=== PATIENT | female | born 1935 | race Caucasian/White ===

== ENCOUNTER 2020-01-03 22:44 | Emergency (ER) | payer MEDICARE, SELFPAY ==
--- NOTE | ~2020-01-03 | XR_ITS ---
EXAMINATION: XR humerus RT EXAM DATE: 01/03/2020 23:13 INDICATION: Initial encounter following injury, with pain of the right upper arm. TECHNIQUE: Orthogonal projections right humerus. Correlation is made to right shoulder x-ray 05/20/20 18. FINDINGS: Previously seen right humeral neck fracture has healed. There are several old right rib fr actures. There are no acute fractures or dislocations identified. There is no subcutaneous gas. The soft tissue is unremarkable. There are no radiopaque foreign bodies. IMPRESSION: 1. XR humerus RT exam without acute osseous findings. 2. Old fractures. Reviewed, dictated and finalized at location A.
--- NOTE | ~2020-01-03 | CT_ITS ---
EXAMINATION: CT brain wo con, CT cervical spine wo con EXAM DATE: 01/03/2020 23:11 INDICATION: Fall, frontal head injury. On blood thinners. TECHNIQUE: Spiral CT of the head was performed without contrast. Axial, and sagittal images were rev iewed. Spiral CT of the cervical spine was performed without contrast. Axial images were reviewed. Coronal and sagittal reformatted images were also reviewed. The dose-length product (DLP) for this e xamination was 605.33 (accession [id number]), 248.40 (accession [id number]) mGy-cm. The expo sure was tailored according to patient size, and iterative reconstruction (ASIR) was used as addition al dose reduction technique. Comparison is made to prior examination from 03/06/2018. FINDINGS: HEAD CT: There is no acute intraparenchymal hemorrhage. No evidence of intraparenchymal brain mass l esion. No evidence of acute infarction. There is mild to moderate periventricular and subcortical hy podensity, nonspecific but probably related to small vessel ischemic disease. There is mild to mode rate prominence of the sulci and ventricles related to cerebral atrophy. There is intracranial lizama tid arteriosclerosis. There is no mass effect or midline shift. There is no obstructive hydrocephal us suspected. There are no extra-axial collections. There are no acute calvarial fractures. The or bits are unremarkable. Small left frontal scalp contusion. The visualized sinuses and mastoid air ce lls are well aerated. CERVICAL CT: Chronic C3 burst fracture with moderate loss of this vertebral body height, and chronic T2 burst fracture with severe loss of this height centrally, both findings are unchanged. Some advanc ed cervical arthropathy. There is no evidence of acute cervical fracture. The odontoid process is in tact. Pre-dens space is normal. Prevertebral soft tissue is normal. There are no soft tissue abnor malities identified. There is no disc space widening or traumatic vertebral body subluxation suspect ed. A detailed level by level evaluation of spondylosis can be added as addendum if requested. IMPRESSION: 1. No acute intracranial or cervical findings. 2. Mild to moderate age-related intracranial findings. 3. Small left frontal scalp contusion. 4. Chronic C3, T2 burst fractures unchanged. Reviewed, dictated and finalized at location A. IMPRESSION: 1. No acute intracranial or cervical findings. 2. Mild to moderate age-related intracranial findings. 3. Small left frontal scalp contusion. 4. Chronic C3, T2 burst fractures unchanged.
--- NOTE | ~2020-01-03 | XR_ITS ---
EXAMINATION: XR wrist RT min 3V EXAM DATE: 01/03/2020 23:14 INDICATION: Initial encounter following injury, with pain of the right wrist TECHNIQUE: Right wrist frontal, frontal with ulnar deviation, oblique and lateral projections obtain ed and reviewed. Comparison is made to prior examination from 05/20/2018. FINDINGS: Previously seen comminuted right distal radial metaphyseal fracture has healed. There is sc apholunate dissociation. There is chronic ulnar styloid avulsion fracture. Polyarticular osteoarthrit is. There are no acute fractures or dislocations identified. There is no subcutaneous gas. The soft tissue is unremarkable. There are no radiopaque foreign bodies. IMPRESSION: 1. Old right distal radial and ulnar styloid fractures. 2. Chronic scapholunate dissociation. 3. No acute fracture line identified. Reviewed, dictated and finalized at location A.
--- NOTE | 2020-01-03 22:43 | ED.FALL ---
HPI - Fall General Chief Complaint: Fall Stated Complaint: FALL Related Data Allergies Allergy/AdvReac Type Severity Reaction Status Date / Time scopolamine Allergy Unknown UNKNOWN Verified 05/26/18 11:07 Tetanus Vaccines and Toxoid Allergy Unknown SWELLING Verified 05/26/18 11:11 [facility] Family History Family History (Updated 08/17/18 @ 11:06 by DOCTOR UNKNOWN) Other Diabetes mellitus Family history of arthritis Family history of cardiovascular disease Family history of malignant neoplasm Hypertension Social History Social History Smoking status: Never smoker Alcohol intake: never
[2020-01-03 22:46] VITALS: BP 134/79; PULSE 89; RESP 17; TEMP 36.7; O2SAT 100
--- NOTE | 2020-01-03 22:46 | ED.FALL ---
HPI - Fall General Chief Complaint: Fall Stated Complaint: FALL Time Seen by Provider: 01/03/20 22:44 Source: patient, EMS and RN notes reviewed Mode of arrival: EMS Limitations: other (dementia) History of Present Illness HPI Narrative: Pt is an 84 y/o female who presents to the ED, via EMS from [place], with c/o a fall that occurred 20 minutes ago. Pt slipped in the shower and fell on her right arm. Pt reports a head injury to her left frontal, but denies syncope. Pt also reports right arm pain and right wrist pain, but denies neck pain. HPI is limited due to pt's dementia. MD complaint: fall Onset (ago): minute(s) (20) Fall from: standing Place fall occurred: retirement/SNF Loss of consciousness: none Prolonged down time: no Symptoms prior to fall: none Context: tripped/slipped Location of injury: head and other (right arm, right wrist) Associated symptoms (after fall): other (right arm pain, right wrist pain) Related Data Allergies Allergy/AdvReac Type Severity Reaction Status Date / Time scopolamine Allergy Unknown UNKNOWN Verified 05/26/18 11:07 Tetanus Vaccines and Toxoid Allergy Unknown SWELLING Verified 05/26/18 11:11 Review of Systems Review of Systems: ROS unobtainable: Yes other (limited due to pt's dementia) Musculoskeletal: Musculoskeletal: Denies neck pain and Reports other (right arm pain, right wrist pain) Neurologic: Denies syncope PMFSH Past Medical History Medical History (Updated 01/04/20 @ 00:00 by Heriberto Petersen) A-fib Anemia CKD (chronic kidney disease) stage 2 Closed right hip fracture Dementia Frequent falls GERD (gastroesophageal reflux disease) HTN (hypertension) Hyperlipidemia Hypothyroid Non-Hodgkin lymphoma dx in 2009, with chemotherapy and radiation Surgical History Surgical History (Updated 01/03/20 @ 23:06 by Connie Hernandez) History of hysterectomy History of knee replacement, total bilateral History of right hip replacement Hx of appendectomy Family History Family History (Updated 01/03/20 @ 23:07 by Connie Hernandez) Mother Hypertension Father Acute myocardial infarction Other Diabetes mellitus Family history of arthritis Family history of cardiovascular disease Family history of malignant neoplasm Social History Social History (Updated 01/03/20 @ 23:07 by Connie Hernandez) Smoking packs per day: 0.5 Smoking cigarettes per day: 10.0 Smoking status: Former smoker Tobacco type: cigarettes Smoking end date: 10/06/1959 Alcohol intake: never Exam Const: General: other (elderly, frail) Course Vital Signs Vital signs: Vital Signs Temperature 36.7 C 01/03/20 22:46 Pulse Rate 89 01/03/20 22:46 Respiratory Rate 17 01/03/20 22:46 Blood Pressure 134/79 01/03/20 22:46 Pulse Oximetry 100 01/03/20 22:46 Temperature 36.7 C 01/03/20 22:46 Pulse Rate 77 01/03/20 23:54 Respiratory Rate 16 01/03/20 23:54 Blood Pressure 112/82 01/03/20 23:54 Pulse Oximetry 99 01/03/20 23:54 MDM - Fall Imaging Data Attestation: I personally reviewed and interpreted this imaging study as follows: Radiologist's impression: ITS Impressions Cervical Spine CT 01/03/20 23:13 IMPRESSION: 1. No acute intracranial or cervical findings. 2. Mild to moderate age-related intracranial findings. 3. Small left frontal scalp contusion. 4. Chronic C3, T2 burst fractures unchanged. Head CT 01/03/20 23:13 IMPRESSION: 1. No acute intracranial or cervical findings. 2. Mild to moderate age-related intracranial findings. 3. Small left frontal scalp contusion. 4. Chronic C3, T2 burst fractures unchanged. Humerus X-Ray 01/03/20 23:20 IMPRESSION: 1. XR humerus RT exam without acute osseous findings. 2. Old fractures. Wrist X-Ray 01/03/20 23:22 IMPRESSION: 1. Old right distal radial and ulnar styloid fractures. 2. Chronic scapholunate dissociation. 3. No acu
--- NOTE | 2020-01-03 23:06 | PC.NURSE ---
pt down to xray and ct
[2020-01-03] MEDS: MORPHINE SULFATE 4 MG/ML INJ IV PUSH (23:26)
[2020-01-03 23:54] VITALS: BP 112/82; PULSE 77; RESP 16; O2SAT 99
--- NOTE | 2020-01-04 00:05 | PC.NURSE ---
Spoke w/ pat at [facility] pt is in independent living and report is not needed.
== END 2020-01-03 23:54 ==
PROVIDERS: Emergency Provider Emergency Medicine; PCP Family Medicine
DX: S09.90XA Unspecified injury of head, initial encounter (principal); M25.511 Pain in right shoulder; F03.90 Unspecified dementia, unspecified severity, without behavioral disturbance, psychotic disturbance, mood disturbance, and anxiety; I48.91 Unspecified atrial fibrillation; I12.9 Hypertensive chronic kidney disease with stage 1 through stage 4 chronic kidney disease, or unspecified chronic kidney disease; N18.2 Chronic kidney disease, stage 2 (mild); K21.9 Gastro-esophageal reflux disease without esophagitis; E78.5 Hyperlipidemia, unspecified; E03.9 Hypothyroidism, unspecified; Z85.72 Personal history of non-Hodgkin lymphomas; Z96.653 Presence of artificial knee joint, bilateral; Z96.641 Presence of right artificial hip joint; Z87.891 Personal history of nicotine dependence; R29.6 Repeated falls; W18.2XXA Fall in (into) shower or empty bathtub, initial encounter
CPT/HCPCS: 70450; 72125; 73060; 73110; 96374; 99284; J2270

== ENCOUNTER 2021-05-25 15:10 | Inpatient (IN) | payer MEDICARE, SELFPAY ==
[2021-05-25] VITALS (32 sets, daily range): BP systolic 97–161; BP diastolic 65–99; PULSE 80–115; RESP 12–29; TEMP 36.5; O2SAT 96–100
--- NOTE | ~2021-05-25 | CT_ITS ---
EXAMINATION: CT brain wo con DATE: 05/27/2021 09:55 INDICATION: Confusion TECHNIQUE: Computed tomography (CT) of the head was performed without intravenous contrast. The mA wa s adjusted according to patient size. Iterative reconstruction technique was employed. Exam dose: 60 5.33 mGy-cm total exam DLP. COMPARISON: 01/03/2020 CT brain FINDINGS: There is a subacute infarct of the right mid parietal lobe, new finding since 01/03/2020. No intracranial hemorrhage, midline shift or mass effect. There is central and cortical cerebral atrophy. Prominent bilateral carotid siphon internal carotid artery calcifications. Vertebral and basilar palak ry calcifications. There is nonspecific diminished attenuation of the subcortical and periventricular cerebral white mat ter, likely due to chronic small vessel ischemic changes. No intracranial mass lesion. No subdural or epidural hematoma. No fracture or bone destruction of the cranial vault. Included mastoid air cells and paranasal sinuses are normally developed and aerated. IMPRESSION: Subacute right mid parietal cerebrovascular accident, within right middle cerebral arter y territory Reviewed, dictated and finalized at Location A. Reviewed, dictated and finalized at location A. IMPRESSION: Subacute right mid parietal cerebrovascular accident, within right middle cerebral artery territory
--- NOTE | ~2021-05-25 | US_ITS ---
EXAMINATION: US carotid duplex BI DATE: 05/27/2021 14:50 INDICATION: Right parietal infarct. TECHNIQUE: Grayscale, color Doppler, and pulsed Doppler images of the cervical carotid arteries were obtained. The degree of vessel stenosis is placed in one of the following categories: normal, <50%, 5 0-69%, >=70% but less than near-occlusion, near-occlusion, or total occlusion. Note that percent sten osis relative to normal distal artery lumen diameter is indirectly measured from velocity measurement s as described by Imer, et al. Radiology 2003; 229:340-346. COMPARISON: None. FINDINGS: RIGHT: The right common carotid artery (CCA) peak systolic velocity (PSV) is 40 cm/s. The right internal car otid artery (ICA) PSV is 44 cm/s. The right ICA end-diastolic velocity (EDV) is 12 cm/s. The right IC A/CCA PSV ratio is 1.1. Grayscale and color Doppler images yield an estimate of <50% diameter reducti on from plaque in the ICA. There is antegrade flow in the right vertebral artery. LEFT: The left CCA PSV is 65 cm/s. The left ICA PSV is 39 cm/s. The left ICA EDV is 7 cm/s. The left ICA/CC A PSV ratio is 0.6. Grayscale and color Doppler images yield an estimate of <50% diameter reduction f rom plaque in the ICA. There is antegrade flow in the left vertebral artery. IMPRESSION: 1. <50% stenosis in the right internal carotid artery. 2. <50% stenosis in the left internal carotid artery. Reviewed, dictated and finalized at location A.
--- NOTE | ~2021-05-25 | US_ITS ---
US venous doppler LE RT DATE: 05/27/2021 10:14 INDICATION: Right leg swelling, calf tenderness TECHNIQUE: Real-time and color flow imaging and Doppler analysis COMPARISON: None FINDINGS: The greater saphenous vein is patent. There is spontaneous and phasic flow and normal augme ntation and color flow signal and normal compression of the deep veins of the right leg. IMPRESSION: No evidence of deep venous thrombosis of the right leg Reviewed, dictated and finalized at [facility]. Reviewed, dictated and finalized at location A.
--- NOTE | 2021-05-25 15:53 | ECG_ITS ---
Measurements Intervals [place] Rate: 89 P: 69 MN: 232 QRS: -50 QRSD: 101 T: 58 QT: 377 QTc: 461 Interpretive Statements SINUS RHYTHM WITH FIRST DEGREE AV BLOCK LEFT AXIS DEVIATION LEFT VENTRICULAR HYPERTROPHY NONSPECIFIC ST ELEVATION IN ANTEROLAT/INF LEADS CANNOT RULE OUT SEPTAL INFARCT, AGE INDETERMINATE BASELINE ARTIFACT- I, II, III, AVR, AVL, AVF ABNORMAL ECG Electronically Signed On 05-25-2021 15:58:57 CDT by Joshua Flores D.O.
[2021-05-25 16:04] LABS: Basophils Percent Auto 0.7 % (0.2-1.2); Eosinophils Absolute Auto 0.1 K/mm3 (0-0.3); Eosinophils Percent Auto 1.9 % (0-4.4); Hematocrit 42.1 % (37.0-47.0); Hemoglobin 13.6 g/dL (12.0-15.0); Immature Granulocyte Absolute 0.01 K/mm3 (0.00-0.031); Immature Granulocyte Percent A 0.2 % (0-0.5); Lymphocytes Absolute Auto 0.93 K/mm3 (0.9-3.2); Lymphocytes Percent Auto 16.3 % (18.3-44.2); Mean Corpuscular HGB Conc 32.3 g/dl (32-36); Mean Corpuscular Hemoglobin 29.3 pg (26-34); Mean Corpuscular Volume 90.7 fl (80-100); Mean Platelet Volume 10.8 fl (7.4-10.4); Monocytes Absolute Auto 0.5 K/mm3 (0.1-0.6); Monocytes Percent Auto 8.9 % (2.6-8.5); Neutrophils Absolute Auto 4.1 K/mm3 (1.3-6.7); Platelet Count Result 160 k/mm3 (150-375); Red Blood Count 4.64 M/mm3 (4.2-5.4); Red Cell Distribution Width 13.6 % (11.5-14.5); White Blood Count 5.7 K/mm3 (4.5-10.0)
[2021-05-25 16:29] LABS: Anion Gap 10 mmol/L (8-16); Blood Urea Nitrogen 41 mg/dL (7-17); Calcium 10.4 mg/dL (8.4-10.2); Carbon Dioxide 27 mmol/L (22-30); Chloride 96 mmol/L (98-107); Estimated CRCL calculation 19 ml/min; Estimated Glomerular Filt Rate 22; Glucose 107 mg/dL (65-110); Potassium 4.3 mmol/L (3.4-5.0); Sodium 133 mmol/L (137-145)
[2021-05-25] MEDS: SODIUM CHLORIDE 0.9% IV 500 ML 999 ML IV CONT (19:50)
[2021-05-25] MEDS: MECLIZINE HCL 25 MG TABLET PO (19:52)
--- NOTE | 2021-05-25 20:04 | ED.GENADULT ---
HPI - General Adult General Chief complaint: Unspecified Stated complaint: anxiety Time Seen by Provider: 05/25/21 18:58 History of Present Illness HPI narrative: Patient is an 85-year-old female with history of dementia who presents to the ER with dizziness and anxiousness. Patient's reports patient woke him up was sleeping saying that the room was spinning. She typically walks with a walker but he would not let her get up and walk. Denies any facial droop or slurred speech. No arm weakness. Patient reports dizziness is resolved at this time. She is unsure if it can be reproduced with moving her head or standing up. Her history is limited due to her dementia as she is unsure why she is here. Related Data Allergies Allergy/AdvReac Type Severity Reaction Status Date / Time scopolamine Allergy Unknown UNKNOWN Verified 05/26/18 11:07 Tetanus Vaccines and Toxoid Allergy Unknown SWELLING Verified 05/26/18 11:11 Review of Systems Review of Systems: ROS unobtainable: Yes unobtainable due to mental status PMFSH Past Medical History Medical History (Updated 05/26/21 @ 05:54 by Sanjeev Gates MD) A-fib Anemia CKD (chronic kidney disease) stage 2 Closed right hip fracture Dementia Frequent falls GERD (gastroesophageal reflux disease) HTN (hypertension) Hyperlipidemia Hypothyroid Non-Hodgkin lymphoma dx in 2009, with chemotherapy and radiation Surgical History Surgical History (Updated 01/03/20 @ 23:06 by Connie Hernandez) History of hysterectomy History of knee replacement, total bilateral History of right hip replacement Hx of appendectomy Family History Family History (Updated 01/03/20 @ 23:07 by Connie Hernandez) Mother Hypertension Father Acute myocardial infarction Other Diabetes mellitus Family history of arthritis Family history of cardiovascular disease Family history of malignant neoplasm Social History Social History (Updated 01/03/20 @ 23:07 by Connie Hernandez) Smoking packs per day: 0.25 Smoking cigarettes per day: 5.0 Smoking status: Former smoker Tobacco type: cigarettes Smoking end date: 10/06/1959 Alcohol intake: never Substance use: never Substance use type: does not use Gender identity (if verbalized by the patient): Female Spiritual care concerns: No Exam Narrative: GENERAL: Well-appearing, well-nourished, and in no acute distress. HEAD: Normocephalic, atraumatic. EYES: PERRL and EOMI. right gaze nystagmus. ENT: Mucous membranes moist. TMs normal bilaterally. CHEST: Clear to auscultation. No respiratory distress. HEART: Regular rate and rhythm. Normal peripheral pulses. ABDOMEN: Soft, nontender, nondistended. EXTREMITIES: Normal range of motion. Trace edema. SKIN: Warm, dry, no rash. NEURO: Alert and oriented x1. PSYCH: Normal mood and affect. Course Course Emergency Course: Patient with orthostasis and renal injury. Admit for observation. Vital Signs Vital signs: Vital Signs Temperature 97.7 F 05/25/21 15:46 Pulse Rate 94 05/25/21 15:46 Respiratory Rate 16 05/25/21 15:46 Blood Pressure 146/93 H 05/25/21 15:46 Pulse Oximetry 99 05/25/21 15:46 Temperature 98.6 F 05/26/21 01:35 Pulse Rate 82 05/26/21 01:35 Respiratory Rate 20 05/26/21 01:35 Blood Pressure 140/64 05/26/21 01:35 Pulse Oximetry 99 05/26/21 01:35 Medical Decision Making Vital Signs Vital Signs: Vital Signs Temperature 97.7 F 05/25/21 15:46 Pulse Rate 94 05/25/21 15:46 Respiratory Rate 16 05/25/21 15:46 Blood Pressure 146/93 H 05/25/21 15:46 Pulse Oximetry 99 05/25/21 15:46 Temperature 98.6 F 05/26/21 01:35 Pulse Rate 82 05/26/21 01:35 Respiratory Rate 20 05/26/21 01:35 Blood Pressure 140/64 05/26/21 01:35 Pulse Oximetry 99 05/26/21 01:35 Lab Data Result diagrams: 05/25/21 15:52 05/25/21 23:16 Labs: Lab Results 05/25/21 05/25/21 05/25/21 Range
[2021-05-25 21:09] LABS: Add Urine Microscopic? NO; Appearance Urine Clear (Clear); Bilirubin Urine Negative (Negative); Blood Urine Negative (Negative); Color Urine Yellow (Yellow); Glucose Urine UA Negative (Negative); Ketones Urine Negative (Negative); Leukocyte Esterase Ur Negative LEU/UL (Negative); Nitrate Urine Negative (Negative); Protein Urine Negative (Negative); Specific Grav Ur 1.009 (1.001-1.035); Urobilinogen Urine Negative mg/dL (<2.0)
[2021-05-25] MEDS: SODIUM CHLORIDE 0.9% IV 1,000 ML 999 ML IV CONT (21:10)
[2021-05-25 23:32] LABS: Anion Gap 12 mmol/L (8-16); Blood Urea Nitrogen 36 mg/dL (7-17); Calcium 9.1 mg/dL (8.4-10.2); Carbon Dioxide 17 mmol/L (22-30); Chloride 105 mmol/L (98-107); Estimated CRCL calculation 23 ml/min; Estimated Glomerular Filt Rate 29; Glucose 84 mg/dL (65-110); Sodium 134 mmol/L (137-145)
[2021-05-26] VITALS (8 sets, daily range): BP systolic 136–156; BP diastolic 64–94; PULSE 80–143; RESP 18–20; TEMP 36.4–37.2; O2SAT 94–99; BMI 29.3; BMI 34.4
--- NOTE | 2021-05-26 03:03 | PM.IMHP ---
H&P: HPI History of Present Illness Date/Time: 05/26/21 03:03 Chief Complaint: DIZZINESS Narrative: THIS IS AN 85-YEAR-OLD FEMALE WITH PAST MEDICAL HISTORY SIGNIFICANT FOR ATRIAL FIBRILLATION, CHRONIC KIDNEY DISEASE, DEMENTIA, GASTROESOPHAGEAL REFLUX DISEASE, HYPERTENSION, HYPOTHYROIDISM, NON-HODGKIN'S LYMPHOMA. PATIENT PRESENTED TO THE EMERGENCY ROOM DUE TO VERTIGO SHE PRESENTED VIA AMBULANCE AFTER HER CALLED EMS DUE TO CONCERNS FOR HEART ATTACK WHEN PATIENT COMPLAINED OF THE ROOM MOVING SPINNING AROUND . PATIENT HAD BEEN IN HER USUAL STATE OF HEALTH UP UNTIL THIS EPISODE NO NAUSEA NO VOMITING NO DIARRHEA NO ABDOMINAL PAIN NO FEVERS NO CHILLS NO RIGORS NO COUGH NO SPUTUM PRODUCTION NO CHEST PAIN NO PND NO ORTHOPNEA NO LEG SWELLING NO LEG PAIN NO RECURRENT FALLS NO SYNCOPE OR NEAR SYNCOPE. PRELIMINARY ASSESSMENT AND WORKUP IN EMERGENCY ROOM WAS SIGNIFICANT FOR ORTHOSTATIC HYPOTENSION. Review of Systems Review of Systems: DIZZINESS Constitutional: Constitutional: Denies chills, Denies fatigue, Denies fever(s), Denies malaise and Denies weakness Eyes: Eyes: Denies change in vision ENT: Denies dysphagia, Reports vertigo, Reports dizziness, Denies nasal congestion, Denies nasal discharge, Denies nasal obstruction and Denies odynophagia Cardiovascular: Cardiovascular: Denies syncope, Denies irregular heart rhythm, Denies radiating jaw, neck or arm pain, Denies palpitations and Denies dyspnea on exertion Respiratory: Respiratory: Denies cough and Denies dyspnea Gastrointestinal: Gastrointestinal: Denies dyspepsia, Denies diarrhea, Denies nausea and Denies vomiting Genitourinary: Genitourinary: Reports no additional female genitourinary complaints Musculoskeletal: Musculoskeletal: Reports no additional musculoskeletal complaints Integumentary/Breasts: Skin/Breast: Reports system reviewed and no additional complaints, except as docu Neurologic: Reports system reviewed and no additional complaints, except as documented Psychiatric: Psychiatric: Reports no additional psychiatric complaints Endocrine: Endocrine: Reports no additional endocrine complaints Hematologic/Lymphatic: Hematologic/Lymphatic: Reports no additional hematologic/lymphatic complaints Allergic/Immunologic: Allergic/Immunologic: Reports no additional allergic/immunologic complaints [facility] Past Medical History Medical History (Updated 05/26/21 @ 03:11 by Rajwinder Desai MD) A-fib Anemia CKD (chronic kidney disease) stage 2 Closed right hip fracture Dementia Frequent falls GERD (gastroesophageal reflux disease) HTN (hypertension) Hyperlipidemia Hypothyroid Non-Hodgkin lymphoma dx in 2009, with chemotherapy and radiation Surgical History Surgical History (Updated 01/03/20 @ 23:06 by Connie Hernandez) History of hysterectomy History of knee replacement, total bilateral History of right hip replacement Hx of appendectomy Family History Family History (Updated 01/03/20 @ 23:07 by Connie Hernandez) Mother Hypertension Father Acute myocardial infarction Other Diabetes mellitus Family history of arthritis Family history of cardiovascular disease Family history of malignant neoplasm Social History Social History (Updated 01/03/20 @ 23:07 by Connie Hernandez) Smoking packs per day: 0.5 Smoking cigarettes per day: 10.0 Smoking status: Former smoker Tobacco type: cigarettes Smoking end date: 10/06/1959 Alcohol intake: never Meds Home Medications and Allergies Allergies Allergy/AdvReac Type Severity Reaction Status Date / Time scopolamine Allergy Unknown UNKNOWN Verified 05/26/18 11:07 Tetanus Vaccines and Toxoid Allergy Unknown SWELLING Verified 05/26/18 11:11 Vital Signs Vital Signs - 24 hr 05/25/21 15:46 05/25/21 18:50 05/25/21 19:21 Temperature 97.7 F Pulse Rate 94 85 80 Respiratory Rate 16 14 21 H Blood Pressure 146/93 H 149/80 H Pulse Oximetry 99 97 100 05/25/21 19:40 05/25/21 19:4
--- NOTE | 2021-05-26 03:10 | ADMGEN ---
This patient, Cristal Laureano, was admitted to [facility] Surg Room 305-02. Patient/family oriented to hospital policies and general routines including ID bracelet, bed and alarms, visiting hours, pain management, procedures, bathroom and other care routines, personal items, smoking policy, room service/diet, and visiting hours. Information on how to activate the Rapid Response Team has been discussed. Patient/Family are encouraged to report perceived risks to care and to ask questions if they do not understand what they are told or what they should do.
[2021-05-26] MEDS: ACETAMINOPHEN 325 MG TABLET 650 MG PO (04:10)
[2021-05-26] MEDS: LACTATED RINGERS 1,000 ML 65 ML IV CONT (04:10)
--- NOTE | 2021-05-26 17:30 | PM.EVENT ---
Event Note Event Note Event Note: I received a call from the charge nurse on 3rd floor around 17:15 inquiring if a member of the hospitalist team was coming to see the patient today. The patient was admitted to the hospital shortly after midnight and was seen by Dr. Desai in the [employer] consultant hours today, 05/26/2021. The nurse had no particular concerns and reports that the patient has been stable today although she is still confused (patient has a history of dementia). Chart was reviewed including H&P and it looks as though the patient was admitted for presumed acute on possibly chronic renal failure as well as orthostatic hypotension. She has been receiving IV fluids and blood pressures have been stable though I do not see orthostatic vital signs documented. The patient is incontinent thus they have not been able to monitor strict I/O. Repeat labs were ordered and were also reviewed. Her creatinine has improved and is now 1.40, down from 2.10. Sodium has also improved with hydration, up to 137 from 133. Calcium has gone down to 9.8 from 10.4. Diuretics remain on hold. Diltiazem was resumed this evening as her heart rate has been running a bit high at times. PT/OT consulted. Fall precautions initiated. Continue IV fluids overnight at low rate and discontinue in a.m.
[2021-05-26 19:18] LABS: Hematocrit 38.9 % (37.0-47.0); Hemoglobin 12.4 g/dL (12.0-15.0); Mean Corpuscular HGB Conc 31.9 g/dl (32-36); Mean Corpuscular Hemoglobin 29.2 pg (26-34); Mean Corpuscular Volume 91.7 fl (80-100); Mean Platelet Volume 10.7 fl (7.4-10.4); Platelet Count Result 152 k/mm3 (150-375); Red Blood Count 4.24 M/mm3 (4.2-5.4); Red Cell Distribution Width 13.7 % (11.5-14.5)
[2021-05-26 19:34] LABS: Alanine Aminotransferase 14 U/L (4-35); Albumin Level 4.1 g/dL (3.5-5.1); Alkaline Phosphatase 66 U/L (38-126); Anion Gap 7 mmol/L (8-16); Aspartate Amino Transferase 38 U/L (14-36); Blood Urea Nitrogen 27 mg/dL (7-17); Calcium 9.8 mg/dL (8.4-10.2); Carbon Dioxide 25 mmol/L (22-30); Chloride 105 mmol/L (98-107); Estimated CRCL calculation 26 ml/min; Estimated Glomerular Filt Rate 36; Glucose 92 mg/dL (65-110); Magnesium 1.9 mg/dL (1.6-2.3); Potassium 3.9 mmol/L (3.4-5.0); Sodium 137 mmol/L (137-145)
[2021-05-26] MEDS: dilTIAZem HCL 30 MG TABLET PO (23:50)
[2021-05-26] MEDS: MIRTAZAPINE 7.5 MG TABLET PO (23:50)
[2021-05-26] MEDS: APIXABAN 2.5 MG TABLET PO (23:50)
[2021-05-27] VITALS (7 sets, daily range): BP systolic 92–172; BP diastolic 59–88; PULSE 71–92; RESP 18–20; TEMP 36.4–37.1; O2SAT 91–97
[2021-05-27] MEDS: LACTATED RINGERS 1,000 ML 65 ML IV CONT (04:04)
[2021-05-27] MEDS: LEVOTHYROXINE SODIUM 75 MCG TABLET PO (06:54)
[2021-05-27] MEDS: PANTOPRAZOLE 40 MG TABLET PO (08:43)
[2021-05-27] MEDS: MAGNESIUM OXIDE 400 MG TABLET PO (08:43)
[2021-05-27] MEDS: dilTIAZem HCL 30 MG TABLET PO ×2 (08:44→16:00)
[2021-05-27] MEDS: ESCITALOPRAM OXALATE 10 MG TABLET PO (08:44)
[2021-05-27 08:45] LABS: Anion Gap 6 mmol/L (8-16); Blood Urea Nitrogen 21 mg/dL (7-17); Calcium 9.7 mg/dL (8.4-10.2); Carbon Dioxide 26 mmol/L (22-30); Chloride 105 mmol/L (98-107); Estimated CRCL calculation 27 ml/min; Estimated Glomerular Filt Rate 39; Glucose 78 mg/dL (65-110); Magnesium 1.7 mg/dL (1.6-2.3); Potassium 4.1 mmol/L (3.4-5.0); Sodium 137 mmol/L (137-145)
--- NOTE | 2021-05-27 09:33 | PM.IMPN ---
Progress Note: A&P Assessment and Plan (1) Orthostatic hypotension: Code(s): I95.1 - Orthostatic hypotension Status: Acute Assessment and Plan: Presented with dizziness. Noted to have 46 point drop in systolic BP from lying to standing on admission. She was rehydrated with IV fluids and symptoms resolved Orthostatic vital signs yesterday negative. Repeat today Bumex and spironolactone on hold Fall precautions IV fluids have been discontinued as she is euvolemic and tolerating p.o. intake Appreciate PT/OT eval (2) Confusion: Code(s): R41.0 - Disorientation, unspecified Status: Acute Assessment and Plan: She has a history of dementia. Her baseline is not clear to me. She is A&O to self only today. Her notes that over the past week she has been possibly more confused. Her UA on presentation was completely normal without concerns for infection. No other signs/symptoms to suggest underlying infection. TSH normal. I will obtain a head CT and check labs including B12, folate, and ammonia levels due to 's report of increased confusion, though I suspect this is simply progression of her dementia likely exacerbated due to unfamiliar surroundings and being hospitalized. (3) Dementia: Code(s): F03.90 - Unspecified dementia without behavioral disturbance Status: Acute Assessment and Plan: See above. (4) Hfzxf-nd-lutpjkk kidney injury: Code(s): N17.9 - Acute kidney failure, unspecified; N18.9 - Chronic kidney disease, unspecified Status: Acute Assessment and Plan: Patient has documented history of CKD stage 2, baseline is unknown and there are no recent prior labs to review. Creatinine was 2.1 on presentation and has improved with IV fluid rehydration, suggesting prerenal etiology. Creatinine is 1.3 today. (5) A-fib: Code(s): I48.91 - Unspecified atrial fibrillation Status: Acute Assessment and Plan: Rate is controlled at this time and noted to be in sinus rhythm on EKG at presentation. She did have some instances of elevated heart rate yesterday, and therefore diltiazem was resumed. Continue with Eliquis and diltiazem. (6) Hypothyroid: Code(s): E03.9 - Hypothyroidism, unspecified Status: Acute Assessment and Plan: TSH is within normal limits. Continue levothyroxine. Additional Plan She has unilateral edema of right lower extremity with significant tenderness. She is on Eliquis so DVT is less likely, but given her symptoms will proceed with venous doppler for evaluation. I am unsure if she is compliant with her anticoagulant or other medications. Subjective Date/time seen: 05/27/21 09:33 Interval history: Date of service: 05/27/2021 Cristal Laureano is an 85-year-old female with a history of atrial fibrillation on chronic anticoagulation, CKD, hypertension, hypothyroidism, and dementia who is seen in follow-up for orthostatic hypotension. She is very confused today. She is quite distressed that she does not know what is going on or why she is in the hospital and perseverates on this for quite some time. She denies any issues with dizziness or lightheadedness. Denies presyncope or any history of syncope as well. She typically ambulates independently though she has not been up out of bed today. It seems she does have occasional falls at home. Per RN, the patient had been demonstrating signs of dementia for some time, but within the past week has been more confused. She denies nausea, vomiting, shortness of breath, chest pain, abdominal pain. Complains of shoulder pain and it sounds as though she had a somewhat recent rotator cuff tear from a fall. She is incontinent of stool and urine per RN. Review of Systems Review of Systems: All systems reviewed & are unremarkable except as noted in HPI and below Exam Narrative: Ms. Laureano is a well-nourished 85-year-old female who is ly
[2021-05-27 11:27] LABS: Ammonia < 9 umol/L (9-30)
[2021-05-27 12:34] LABS: Folic Acid 7.3 ng/mL (2.76->20)
[2021-05-27] MEDS: ASPIRIN 81 MG ENTERIC TABLET PO (12:57)
[2021-05-27] MEDS: APIXABAN 2.5 MG TABLET PO ×2 (12:57→16:00)
[2021-05-27] MEDS: ACETAMINOPHEN 325 MG TABLET 650 MG PO (12:57)
[2021-05-27 13:23] LABS: Cholesterol 210 mg/dL (0-200); HDL Direct 76 mg/dL; Triglycerides 97 mg/dL (<150)
[2021-05-27 15:18] LABS: Hemoglobin A1C 5.7 % (<5.7)
[2021-05-27 15:57] LABS: LDL Cholesterol Direct 83 mg/dL
[2021-05-27] MEDS: MIRTAZAPINE 7.5 MG TABLET PO (20:29)
[2021-05-28] VITALS (12 sets, daily range): BP systolic 91–147; BP diastolic 64–78; PULSE 67–94; RESP 18–20; TEMP 36.7–37.1; O2SAT 93–96
--- NOTE | 2021-05-28 | ECHO_ITS ---
Patient Info Name: Cristal Laureano Age: 85 years : 1935 Gender: Female Ht: 60 in Wt: 170 lbs BSA: 1.84 m2 HR: 88 bpm BP: 147 / 78 mmHg Heart Rhythm: Sinus Rhythm Technical Quality: Good Exam Date: 05/28/2021 9:44 AM Exam Location: [facility] Pulmonary Exam Room: 305 Patient Status: Inpatient Admit Date: 05/27/2021 Staff Ordering Physician: Zeinab Nair PA-C Area Director Of Home Health Sales: Deja Langley RDCS Attending Provider: Zeinab Nair PA-C Referring Physician: Korey BONILLA; Exam Type: CA echo doppler color flow Study Info Indications - cva Complete two-dimensional, color flow and Doppler transthoracic echocardiogram is performed. Summary 1. Complete two-dimensional, color flow and Doppler transthoracic echocardiogram is performed. 2. Left ventricular chamber dimension is normal. 3. Left ventricular systolic function is normal, estimated at 60-65%. 4. There is mildly increased left ventricular wall thickness. 5. The left ventricular diastolic function is grade II diastolic dysfunction. 6. Left atrial chamber dimension is severely enlarged. 7. Right atrial chamber dimension is mildly enlarged. 8. There is severe aortic valve stenosis with a peak velocity of 424 cm/s, mean gradient of 49 mmHg, and aortic valve area of 0.8 cm2. 9. There is mild to moderate aortic valve regurgitation. 10. There is severe aortic valve calcification. 11. The mitral valve has calcified leaflets. 12. There is mild to moderate mitral valve regurgitation. 13. There is mild tricuspid valve regurgitation. 14. Severe pulmonary hypertension, estimated pulmonary arterial systolic pressure is 65 mmHg. 15. There is mild pulmonic regurgitation. Left Ventricle Left ventricular chamber dimension is normal. Left ventricular systolic function is normal, estimated at 60-65%. There is mildly increased left ventricular wall thickness. The left ventricular diastolic function is grade II diastolic dysfunction. Right Ventricle Right ventricular chamber dimension is normal. Right ventricular systolic function is normal. Left Atria Left atrial chamber dimension is severely enlarged. Right Atria Right atrial chamber dimension is mildly enlarged. Atrial Septum Intact interatrial septum visualized by color flow imaging. Aortic Valve The aortic valve is trileaflet. There is severe aortic valve stenosis with a peak velocity of 424 cm/s, mean gradient of 49 mmHg, and aortic valve area of 0.8 cm2. There is mild to moderate aortic valve regurgitation. There is severe aortic valve calcification. Pulmonic Valve The pulmonic valve is normal. There is no pulmonic valve stenosis. There is mild pulmonic regurgitation. Mitral Valve The mitral valve has calcified leaflets. There is no mitral valve stenosis. There is mild to moderate mitral valve regurgitation. Tricuspid Valve The tricuspid valve leaflets are normal. There is no significant tricuspid valve stenosis. There is mild tricuspid valve regurgitation. Severe pulmonary hypertension, estimated pulmonary arterial systolic pressure is 65 mmHg. Pericardium/Pleural The pericardium appears normal. There is no pericardial effusion. Inferior Vena Cava Normal inferior vena cava with >50% collapse upon inspiration consistent with normal right atrial pressure, 10 mmHg. Left Ventricular Outflow Tract Name Value
[2021-05-28] MEDS: LEVOTHYROXINE SODIUM 75 MCG TABLET PO (06:32)
[2021-05-28 07:30] LABS: Anion Gap 9 mmol/L (8-16); Blood Urea Nitrogen 20 mg/dL (7-17); Calcium 9.4 mg/dL (8.4-10.2); Carbon Dioxide 18 mmol/L (22-30); Chloride 107 mmol/L (98-107); Estimated CRCL calculation 27 ml/min; Estimated Glomerular Filt Rate 39; Glucose 78 mg/dL (65-110); Potassium 4.2 mmol/L (3.4-5.0); Sodium 134 mmol/L (137-145)
--- NOTE | 2021-05-28 09:45 | PCPTNOTE ---
The patient treatment was not able to be completed this A.M. due to patient having test bedside. Will plan to continue treatment per plan of care.
[2021-05-28] MEDS: dilTIAZem HCL 30 MG TABLET PO ×2 (10:19→18:19)
[2021-05-28] MEDS: ERGOCALCIFEROL 50,000 UNIT CAPSULE 50000 UNITS PO (10:19)
[2021-05-28] MEDS: MAGNESIUM OXIDE 400 MG TABLET PO (10:19)
[2021-05-28] MEDS: PANTOPRAZOLE 40 MG TABLET PO (10:20)
[2021-05-28] MEDS: APIXABAN 2.5 MG TABLET PO ×2 (10:20→18:19)
[2021-05-28] MEDS: ESCITALOPRAM OXALATE 10 MG TABLET PO (10:20)
[2021-05-28] MEDS: ASPIRIN 81 MG ENTERIC TABLET PO (10:20)
--- NOTE | 2021-05-28 11:05 | PM.IMPN ---
Progress Note: A&P Assessment and Plan (1) CVA (cerebral vascular accident): Code(s): I63.9 - Cerebral infarction, unspecified Status: Acute Assessment and Plan: Head CT showed subacute right mid parietal CVA within right middle cerebral artery. She has no focal neurologic deficits. Initiate aspirin Carotid Dopplers with <50% stenosis bilaterally Echocardiogram ordered and is pending Appreciate neurology consultation. Recommendations appreciated. Lipid panel reviewed. Will initiate moderate intensity statin. Appreciate PT/OT (2) Orthostatic hypotension: Code(s): I95.1 - Orthostatic hypotension Status: Acute Assessment and Plan: Presented with dizziness. Noted to have 46 point drop in systolic BP from lying to standing on admission. She was rehydrated with IV fluids and symptoms resolved Repeat orthostatics today. Appears not completed accurately yesterday therefore unclear if this problem is persisting. Bumex and spironolactone on hold Fall precautions DARIELA hose IV fluids have been discontinued as she is euvolemic and tolerating p.o. intake (3) Confusion: Code(s): R41.0 - Disorientation, unspecified Status: Acute Assessment and Plan: She has a history of dementia. She was noted by her to be slightly more confused than normal over the past week. After further discussion with the patient and with her son, she actually seems to be at her baseline. Her UA on presentation was completely normal without concerns for infection. No other signs/symptoms to suggest underlying infection. TSH normal. B12, folate, and ammonia wnl. (4) Dementia: Code(s): F03.90 - Unspecified dementia without behavioral disturbance Status: Acute Assessment and Plan: See above. (5) Jilyq-iy-irmlpqq kidney injury: Code(s): N17.9 - Acute kidney failure, unspecified; N18.9 - Chronic kidney disease, unspecified Status: Acute Assessment and Plan: Patient has documented history of CKD stage 2, baseline is unknown and there are no recent prior labs to review. Creatinine was 2.1 on presentation and has improved with IV fluid rehydration, suggesting prerenal etiology. Creatinine is 1.3 today. (6) A-fib: Code(s): I48.91 - Unspecified atrial fibrillation Status: Acute Assessment and Plan: Rate is controlled at this time and noted to be in sinus rhythm on EKG at presentation. Continue with Eliquis and diltiazem. She is in sinus rhythm with rate controlled in the 70s-80s today based on telemetry review (7) Hypothyroid: Code(s): E03.9 - Hypothyroidism, unspecified Status: Acute Assessment and Plan: TSH is within normal limits. Continue levothyroxine. (8) Right rotator cuff tear: Code(s): M75.101 - Unspecified rotator cuff tear or rupture of right shoulder, not specified as traumatic Status: Acute Assessment and Plan: Family reports torn rotator cuff. She was seen by orthopedics and was considering surgery but ultimately decided to avoid surgical intervention. She does have limited mobility of the right arm due to this. Continue with supportive care. Subjective Date/time seen: 05/28/21 11:05 Interval history: Date of service: 05/28/2021 Cristal Laureano is an 85-year-old female with a history of atrial fibrillation on chronic anticoagulation, CKD, hypertension, hypothyroidism, and dementia who is seen in follow-up for orthostatic hypotension and subacute CVA. She is doing well today. She denies dizziness. No issues with coordination or balance. No visual changes. Denies tinnitus. No headache. Her son is present at the bedside in this seems to have helped her become more calm today. She has been eating well. She denies nausea, vomiting, fever, or chills. Denies shortness of breath, cough, chest pain, or palpitations. She has chronic right-sided shoulder pain with mov
[2021-05-28] MEDS: MIRTAZAPINE 7.5 MG TABLET PO (23:00)
[2021-05-29] VITALS: PULSE 100
[2021-05-29 04:00] VITALS: PULSE 83
[2021-05-29 05:32] VITALS: BP 146/62; PULSE 80; RESP 20; TEMP 36.7; O2SAT 94
[2021-05-29] MEDS: LEVOTHYROXINE SODIUM 75 MCG TABLET PO (05:34)
[2021-05-29 06:52] LABS: Hematocrit 37.5 % (37.0-47.0); Hemoglobin 12.2 g/dL (12.0-15.0); Mean Corpuscular HGB Conc 32.5 g/dl (32-36); Mean Corpuscular Hemoglobin 29.5 pg (26-34); Mean Corpuscular Volume 90.6 fl (80-100); Mean Platelet Volume 10.5 fl (7.4-10.4); Platelet Count Result 164 k/mm3 (150-375); Red Blood Count 4.14 M/mm3 (4.2-5.4); Red Cell Distribution Width 13.7 % (11.5-14.5); White Blood Count 5.7 K/mm3 (4.5-10.0)
[2021-05-29 07:17] LABS: Anion Gap 9 mmol/L (8-16); Blood Urea Nitrogen 22 mg/dL (7-17); Calcium 9.3 mg/dL (8.4-10.2); Carbon Dioxide 23 mmol/L (22-30); Chloride 106 mmol/L (98-107); Estimated CRCL calculation 28 ml/min; Estimated Glomerular Filt Rate 39; Glucose 74 mg/dL (65-110); Potassium 3.8 mmol/L (3.4-5.0); Sodium 138 mmol/L (137-145)
[2021-05-29 08:00] VITALS: BP 154/72; O2SAT 96
--- NOTE | 2021-05-29 11:16 | WPDNEURCNPN ---
Assessment and Plan Additional Plan multifactorial reason for the fall central versus peripheral in addition to documented orthostatic hypotension and obviously history of chronic illnesses along with the atrial fibrillation evaluation included the echocardiogram which is obviously abnormal has normal carotid studies normal Doppler studies venous in the right lower extremity and CT scan documenting right mid parietal stroke of subacute nature which could be 1 of the contributing factor at this particular time with obviously abnormal echocardiogram but patient is already on apixaban along with other medication treatment will be continued as such she will benefit from therapy Consult date: 05/29/21 Time Seen: 09:45 HPI: Cristal Laureano is a 85 year old femaleAdmitted to the hospital for the complaints of dizziness. Patient has history of underlying 1. Atrial fibrillation 2. Chronic renal disease 3. Dementia 4. GERD 5. Hypertension 6. Hypothyroidism and 7. Non-Hodgkin's lymphoma EM ambulance was called to the scene by her when patient complained of the room moving and spinning around otherwise she had been in good health and she gave no history of any other associated symptomatology patient does have a history of frequent falls, hypertension, hyperlipidemia, and hypothyroidism. Additionally she has undergone bilateral total knee replacement and right hip replacement as well Review of Systems Review of Systems: All systems reviewed & are unremarkable except as noted in HPI and below PMFSH Past Medical History Medical History A-fib Anemia CKD (chronic kidney disease) stage 2 Closed right hip fracture Dementia Frequent falls GERD (gastroesophageal reflux disease) HTN (hypertension) Hyperlipidemia Hypothyroid Non-Hodgkin lymphoma dx in 2009, with chemotherapy and radiation Surgical History Surgical History History of hysterectomy History of knee replacement, total bilateral History of right hip replacement Hx of appendectomy Family History Family History Mother Hypertension Father Acute myocardial infarction Other Diabetes mellitus Family history of arthritis Family history of cardiovascular disease Family history of malignant neoplasm Social History Social History Smoking packs per day: 0.25 Smoking cigarettes per day: 5.0 Smoking status: Former smoker Tobacco type: cigarettes Smoking end date: 10/06/1959 Alcohol intake: never Substance use: never Substance use type: does not use Gender identity (if verbalized by the patient): Female Spiritual care concerns: No Meds Home Medications and Allergies Home Medications Medication Instructions Recorded Confirmed Type apixaban [Eliquis] 2.5 mg PO BID 05/26/21 05/26/21 History bumetanide 1 mg PO DAILY 05/26/21 05/26/21 History diltiazem HCl 30 mg PO BID 05/26/21 05/26/21 History ergocalciferol (vitamin D2) 50,000 unit PO USEASDIRECTD 05/26/21 05/26/21 History escitalopram oxalate 10 mg PO DAILY 05/26/21 05/26/21 History levothyroxine 75 mcg PO DAILY 05/26/21 05/26/21 History magnesium oxide 400 mg PO DAILY 05/26/21 05/26/21 History mirtazapine 7.5 mg PO HS 05/26/21 05/26/21 History nystatin [Nystop] 100,000 unit TOPICAL DAILY 05/26/21 05/26/21 History omeprazole 40 mg PO DAILY 05/26/21 05/26/21 History spironolactone 25 mg PO DAILY 05/26/21 05/26/21 History Allergies Allergy/AdvReac Type Severity Reaction Status Date / Time scopolamine Allergy Unknown UNKNOWN Verified 05/26/18 11:07 Tetanus Vaccines and Toxoid Allergy Unknown SWELLING Verified 05/26/18 11:11 Vital Signs Vital Signs - 24 hr 05/28/21 12:00 05/28/21 13:51 05/28/21 13:55 Temperature Pulse Rate 87 Respiratory Rate Blood Pressure 138/76 91/66 L Pulse Oximetr
[2021-05-29 13:21] VITALS: BP 149/99; BP 91/66
[2021-05-29] MEDS: ATORVASTATIN 20 MG TABLET PO (13:41)
[2021-05-29] MEDS: dilTIAZem HCL 30 MG TABLET PO (13:41)
[2021-05-29] MEDS: MAGNESIUM OXIDE 400 MG TABLET PO (13:41)
[2021-05-29] MEDS: ESCITALOPRAM OXALATE 10 MG TABLET PO (13:41)
[2021-05-29] MEDS: ASPIRIN 81 MG ENTERIC TABLET PO (13:41)
[2021-05-29] MEDS: APIXABAN 2.5 MG TABLET PO (13:41)
[2021-05-29] MEDS: PANTOPRAZOLE 40 MG TABLET PO (13:41)
[2021-05-29 14:00] VITALS: BP 130/88; PULSE 103; RESP 14; TEMP 36.4; O2SAT 96
--- NOTE | 2021-05-29 16:53 | PM.DS ---
DS: Admitting Diagnosis Admitting Diagnosis Dizziness DS: Summary Hospital Course Hospital Course: Mrs. Laureano is an 85 year old lady with a PMH significant for afib, CKD, dementia, HTN, hypothyroidism, NHL and GERD. She presented to the ED via ambulance with vertigo. Her called EMS due to concern for heart attack because the patient complained of the room spining around. She had been in her usual state of health until this episode. Preliminary workup in the ED was significant fo orthostatic hypotension. Head ad CT showed subacute right mid parietal CVA within right middle cerebral artery. She has no focal neurologic deficits. Aspirin and statin were initiated. was initiated and neurology was consulted. She underwent carotid Dopplers with <50% stenosis bilaterally. Echocardiogram ordered showed garde II diastolic dysfunction with normal EF. She is on Eliqis and neurology recommends to continue. She is hemodynamically stable and will discharge home with [facility]. She has been advised to follow up with her PCP. Time Spent with Patient Time attestation: Total time spent providing and/or coordinating discharge services: Time spent: Greater than 30 minutes Exam Const: General: no acute distress, alert and awake HENMT: Head: normocephalic and atraumatic Ears: hearing grossly normal bilaterally and external ears normal Face and sinus: face symmetric Mouth: Yes Normal oral and palatal mucosa present Eyes: Pupils: Equal, round and reactive pupils present EOM: EOMs intact bilaterally Neck: Neck: full ROM and trachea midline Chest: Chest palpation & inspection: normal inspection of the chest Resp: Effort & Inspection: normal respiratory effort Auscultation: clear to auscultation bilaterally Cardio: Jugular venous distension: no JVD Rate: regular rate Rhythm: regular rhythm Heart sounds: S1 normal heart sound present and S2 normal heart sound present GI: Inspection: normal to inspection GI Palp: Yes Soft to palpation Percussion: Yes normal to percussion Auscultation: normal bowel sounds : General: Yes no CVA tenderness Back/Spine/Pelvis: Back: no CVA tenderness Skin: General skin exam: normal color Rashes: no rashes Neuro: General: oriented to person and confusion Cranial nerves: Yes Equal, round and reactive pupils present Speech: normal speech Psych: Appearance: grossly normal Affect: normal affect Judgement: Good judgement present (Psych) DS: Data Data Completed and Pending Labs on day of discharge: Labs from last 24 hours 05/29/21 05/29/21 05:59 05:59 WBC 5.7 RBC 4.14 L Hgb 12.2 Hct 37.5 MCV 90.6 MCH 29.5 MCHC 32.5 RDW 13.7 Plt Count 164 MPV 10.5 H Sodium 138 Potassium 3.8 Chloride 106 Carbon Dioxide 23 Anion Gap 9 BUN 22 H Creatinine 1.30 H Estim Creat Clear Calc 28 Estimated GFR 39 L Glucose 74 Calcium 9.3 Discharge Plan Discharge Attending physician on discharge: Chad Kent Consulting providers: José Miguel Mayers Discharging Clinician: Brooklynn Vergara Patient Disposition: Home Health Service Activity: as tolerated Diet: heart healthy Discharge Instructions: Per Care Coordination. Pt. to have [facility] for RN, PT/OT eval and treat [phone]. RN please fax discharge instructions to [phone] call to schedule follow up appointment with PCP take medication as ordered Patient Instructions: Antibiotic Form, Aspirin (By mouth), Stroke (DC) Stand Alone Forms: General Discharge Information Follow-up/Referrals: Jeff Munoz MD [Primary Care Provider] - 2 Weeks Discharge Medications: New aspirin 81 mg Tablet,Delayed Release (Dr/Ec) 81 mg PO QAM 30 Days Qty: 30 RF: 0 atorvastatin 20 mg Tablet 20 mg PO DAILY 30 Days Qty: 30 RF: 0 Continued omeprazole 40 mg capsule,delayed release(DR/EC) 40 mg PO DAILY RF: 0 spironolactone 25 mg tablet 25 mg PO DAILY RF: 0 levo
== END 2021-05-29 16:32 | disposition home health service (06) | DRG 65 ==
LOC: ANHED 22:50 → ANH3MEDSUR 05-26 00:58
PROVIDERS: Emergency Medicine; Physician Assistant; Admitting Provider Internal Medicine; Emergency Provider Emergency Medicine; PCP Family Medicine; Visit Provider Nurse Practitioner Adult Health
DX: I63.9 Cerebral infarction, unspecified (principal); N17.9 Acute kidney failure, unspecified; F03.90 Unspecified dementia, unspecified severity, without behavioral disturbance, psychotic disturbance, mood disturbance, and anxiety; I95.1 Orthostatic hypotension; I12.9 Hypertensive chronic kidney disease with stage 1 through stage 4 chronic kidney disease, or unspecified chronic kidney disease; N18.2 Chronic kidney disease, stage 2 (mild); I48.91 Unspecified atrial fibrillation; E03.9 Hypothyroidism, unspecified; M75.101 Unspecified rotator cuff tear or rupture of right shoulder, not specified as traumatic; K21.9 Gastro-esophageal reflux disease without esophagitis; Z96.641 Presence of right artificial hip joint; Z96.653 Presence of artificial knee joint, bilateral; Z79.01 Long term (current) use of anticoagulants; Z87.891 Personal history of nicotine dependence; Z88.7 Allergy status to serum and vaccine; Z85.72 Personal history of non-Hodgkin lymphomas; Z91.81 History of falling; Z92.21 Personal history of antineoplastic chemotherapy; Z92.3 Personal history of irradiation
CPT/HCPCS: 36415; 51701; 70450; 80048; 80053; 80061; 81003; 82140; 82607; 82746; 83036; 83735; 84443; 85025; 85027; 93005; 93306; 93880; 93971; 96360; 96361; 97110; 97116; 97162; 97165; 97530; 99285; A9270; G0378; J7030; J7040; J7120

== ENCOUNTER 2021-09-12 11:20 | Emergency (ER) | payer MEDICARE, SELFPAY ==
--- NOTE | ~2021-09-12 | XR_ITS ---
EXAMINATION: XR shoulder RT min 2V DATE: 09/12/2021 12:58 INDICATION: Right shoulder pain. TECHNIQUE: AP internally and externally rotated, AP oblique externally rotated and transscapular Y vi ews of the right shoulder were obtained. COMPARISON: 01/03/2020 FINDINGS: Old fracture deformity at the right humeral head. There is anterosuperior subluxation, potentially di slocation of the right humeral head with respect to the glenoid. The humeral head articulates with th e remodeled coracoid process suggesting this is likely chronic. Acromioclavicular joint is normal. Ol d healed right rib fractures. Pulmonary vascular congestion and increased interstitial pattern with b ronchial wall thickening throughout the right lung suggesting mild pulmonary edema. Again seen are se veral thoracic compression fractures. IMPRESSION: 1. 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 2. Chronic fractures at the proximal right humerus, multiple right rib fractures and multiple branch compression fractures. 3. Prominent perivascular congestion and mild pulmonary edema. Reviewed, dictated and finalized at location B. ROOM/[employer] MANAGER IMPRESSION: 1. 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 2. Chronic fractures at the proximal right humerus, multiple right rib fracture s and multiple branch compression fractures. 3. Prominent perivascular congestion and mild pulmonary edema.
--- NOTE | ~2021-09-12 | XR_ITS ---
EXAMINATION: XR shoulder LT min 2V DATE: 09/12/2021 14:02 INDICATION: Acute onset left shoulder pain TECHNIQUE: AP internally and externally rotated, AP oblique externally rotated and transscapular Y vi ews of the left shoulder were obtained. COMPARISON: None FINDINGS: Normal alignment. No fracture.Mild left glenohumeral osteoarthritis with cephalad predominant mild n onuniform joint space narrowing and tiny marginal osteophytes along the inferior glenoid. Suggestion of prior lateral left clavicle excision. Multiple old healed left rib fractures. Soft tissues are unr emarkable. IMPRESSION: Mild left glenohumeral osteoarthritis. Reviewed, dictated and finalized at location B. [facility]
--- NOTE | 2021-09-12 11:30 | ED.CHESTPAIN ---
HPI - Chest Pain General Chief Complaint: Extremity Injury, Upper Stated Complaint: L SHOULDER PAIN Time Seen by Provider: 09/12/21 11:25 History of Present Illness HPI narrative: 85-year-old female presented to the emergency department for evaluation of acute onset of left shoulder pain. Patient does have prior history of right-sided shoulder injury. Patient states she began having pain of her left shoulder on Friday. And that the pain continued to worsen through Friday. Patient did take some tramadol for pain control last night stated this did help a little bit. Patient has not taken any additional medication today for this. Patient denies any specific incidents fall or injury. Patient denies any increase in activity. Related Data Home Medications Medication Instructions Recorded Confirmed Eliquis 2.5 mg PO BID 05/26/21 05/26/21 bumetanide 1 mg PO DAILY 05/26/21 05/26/21 diltiazem HCl 30 mg PO BID 05/26/21 05/26/21 ergocalciferol (vitamin D2) 50,000 unit PO USEASDIRECTD 05/26/21 05/26/21 escitalopram oxalate 10 mg PO DAILY 05/26/21 05/26/21 levothyroxine 75 mcg PO DAILY 05/26/21 05/26/21 magnesium oxide 400 mg PO DAILY 05/26/21 05/26/21 mirtazapine 7.5 mg PO HS 05/26/21 05/26/21 nystatin [Nystop] 100,000 unit TOPICAL DAILY 05/26/21 05/26/21 omeprazole 40 mg PO DAILY 05/26/21 05/26/21 spironolactone 25 mg PO DAILY 05/26/21 05/26/21 Allergies Allergy/AdvReac Type Severity Reaction Status Date / Time scopolamine Allergy Unknown UNKNOWN Verified 09/12/21 11:42 Tetanus Vaccines and Toxoid Allergy Unknown SWELLING Verified 09/12/21 11:42 Review of Systems Review of Systems: CONSTITUTIONAL: Denies fever, chills, or sweats. EYES: Denies visual changes, redness, or discharge. ENT: Denies rhinorrhea, congestion, sore throat, or otalgia. CARDIOVASCULAR: Denies chest pain, palpitations, or edema. RESPIRATORY: Denies cough or dyspnea. GASTROINTESTINAL: Denies abdominal pain, nausea, vomiting, or diarrhea. SKIN: Denies rash or itching. MUSCULOSKELETAL: Denies back pain. Tenderness to palpation. Limited range of motion of the left shoulder. No deformity, no ecchymosis. Neurovascularly intact. No tenderness to palpation of humerus or below the elbow. NEUROLOGIC: Denies headache, numbness, or weakness. PSYCHIATRIC: Denies anxiety or depression. PMFSH Past Medical History Medical History A-fib Anemia CKD (chronic kidney disease) stage 2 Closed right hip fracture Dementia Frequent falls GERD (gastroesophageal reflux disease) HTN (hypertension) Hyperlipidemia Hypothyroid Non-Hodgkin lymphoma dx in 2009, with chemotherapy and radiation Surgical History Surgical History History of hysterectomy History of knee replacement, total bilateral History of right hip replacement Hx of appendectomy Family History Family History Mother Hypertension Father Acute myocardial infarction Other Diabetes mellitus Family history of arthritis Family history of cardiovascular disease Family history of malignant neoplasm Social History Social History Smoking packs per day: 0.25 Smoking cigarettes per day: 5.0 Smoking status: Former smoker Tobacco type: cigarettes Smoking end date: 10/06/1959 Alcohol intake: never Substance use: never Substance use type: does not use Gender identity (if verbalized by the patient): Female Spiritual care concerns: No Exam Narrative: APPEARANCE: Well appearing, no pain in distress, well-nourished. Head normocephalic atraumtaic. EYES: PERRLA/EOMI, conjunctivae very clear. NOSE: Normal no drainage NECK: Supple. No adenopathy, no masses. RESPIRATORY: Airway patent, repsirations nonlabored. Clear to auscultation bilaterally, no rales, rhonchi, wheezing. CARDIOVASCULAR: Regular
[2021-09-12 11:32] VITALS: PULSE 95; RESP 28; O2SAT 92
[2021-09-12 11:33] VITALS: BP 138/86; PULSE 95; RESP 20; TEMP 36.8; O2SAT 97
[2021-09-12 11:45] VITALS: PULSE 89; RESP 22; O2SAT 95
[2021-09-12] MEDS: traMADol HCL (*CRX) 50 MG TABLET PO (12:03)
[2021-09-12 12:47] VITALS: BP 168/89; PULSE 102; RESP 18; O2SAT 96
[2021-09-12 15:45] VITALS: BP 132/73; PULSE 105; RESP 20; TEMP 36.6; O2SAT 93
[2021-09-12] MEDS: ONDANSETRON HCL ODT 4 MG TABLET PO (15:45)
== END 2021-09-12 15:45 ==
PROVIDERS: Emergency Provider Emergency Medicine; PCP Family Medicine
DX: M25.512 Pain in left shoulder (principal); I48.91 Unspecified atrial fibrillation; I12.9 Hypertensive chronic kidney disease with stage 1 through stage 4 chronic kidney disease, or unspecified chronic kidney disease; N18.2 Chronic kidney disease, stage 2 (mild); E78.5 Hyperlipidemia, unspecified; E03.9 Hypothyroidism, unspecified; Z85.72 Personal history of non-Hodgkin lymphomas; Z79.01 Long term (current) use of anticoagulants; Z87.891 Personal history of nicotine dependence
CPT/HCPCS: 73030; 99284; A9270

== ENCOUNTER 2021-09-26 15:21 | Inpatient (IN) | payer MEDICARE, SELFPAY ==
[2021-09-26 15:31] VITALS: BP 140/82; PULSE 88; RESP 20; TEMP 36.9; O2SAT 100
[2021-09-26 17:59] VITALS: BP 151/80; PULSE 87; RESP 18; O2SAT 100
[2021-09-26 18:27] LABS: Basophils Percent Auto 0.6 % (0.2-1.2); Eosinophils Absolute Auto 0.1 K/mm3 (0-0.3); Hematocrit 32.6 % (37.0-47.0); Hemoglobin 10.5 g/dL (12.0-15.0); Immature Granulocyte Absolute 0.02 K/mm3 (0.00-0.031); Immature Granulocyte Percent A 0.3 % (0-0.5); Lymphocytes Absolute Auto 1.36 K/mm3 (0.9-3.2); Lymphocytes Percent Auto 20.8 % (18.3-44.2); Mean Corpuscular HGB Conc 32.2 g/dl (32-36); Mean Corpuscular Hemoglobin 26.4 pg (26-34); Mean Corpuscular Volume 82.1 fl (80-100); Mean Platelet Volume 10.1 fl (7.4-10.4); Monocytes Absolute Auto 0.7 K/mm3 (0.1-0.6); Monocytes Percent Auto 10.4 % (2.6-8.5); Neutrophils Absolute Auto 4.3 K/mm3 (1.3-6.7); Neutrophils Percent Auto 65.9 % (45.5-73.1); Platelet Count Result 258 k/mm3 (150-375); Red Blood Count 3.97 M/mm3 (4.2-5.4); White Blood Count 6.5 K/mm3 (4.5-10.0)
[2021-09-26] MEDS: SODIUM CHLORIDE 0.9% IV 500 ML 999 ML IV CONT ×2 (18:35→19:32)
[2021-09-26 18:38] LABS: Alanine Aminotransferase 15 U/L (4-35); Albumin Level 4.7 g/dL (3.5-5.1); Alkaline Phosphatase 82 U/L (38-126); Anion Gap 11 mmol/L (8-16); Aspartate Amino Transferase 34 U/L (14-36); Bilirubin,Total 0.6 mg/dL (0.2-1.3); Blood Urea Nitrogen 41 mg/dL (7-17); Calcium 10.3 mg/dL (8.4-10.2); Carbon Dioxide 24 mmol/L (22-30); Chloride 97 mmol/L (98-107); Estimated CRCL calculation 19 ml/min; Estimated Glomerular Filt Rate 20; Glucose 111 mg/dL (65-110); Potassium 4.1 mmol/L (3.4-5.0); Sodium 132 mmol/L (137-145)
[2021-09-26 18:56] LABS: Add Urine Microscopic? YES; Appearance Urine Clear (Clear); Bacteria Urine Trace /hpf; Bilirubin Urine Negative (Negative); Blood Urine 1+ (Negative); Color Urine Yellow (Yellow); Glucose Urine UA Negative (Negative); Ketones Urine Negative (Negative); Leukocyte Esterase Ur Trace LEU/UL (Negative); Mucus Urine Rare /lpf; Nitrate Urine Negative (Negative); Protein Urine Negative (Negative); RBC Urine 0-2 /hpf (0-2); Specific Grav Ur 1.009 (1.001-1.035); Squamous Epithelial Cell Urine Rare /hpf (Few); Urobilinogen Urine Negative mg/dL (<2.0)
--- NOTE | 2021-09-26 20:24 | PM.IMHP ---
H&P: HPI History of Present Illness Date/Time: 09/26/21 20:24 Chief Complaint: No urine output Narrative: This is an 85-year-old female with past medical history significant for stroke, atrial fibrillation rate control and anticoagulated, hypertension, dyslipidemia, hypothyroidism, non-Hodgkin lymphoma, chronic kidney disease, dementia, frequent falls. Patient resides at assisted living facility with her hospital she was brought in today for evaluation after noticed that patient was not making urine in the list to days, most of the history has been obtained from who is at bedside as patient is pleasantly demented can not tell why she is in the emergency room. According to patient has not been having a good per orally intake he has to give her cues and encouraged her to eat he noticed that she has not been making urine in the last 2 days also has been is staying a lot in bed and not participating in activities and not wanting to go eat at the dining room area. Preliminary workup was significant for creatinine of 2.3 BUN of 40. Patient has been admitted for further evaluation management and treatment. Review of Systems Review of Systems: ROS unobtainable: Yes unobtainable due to medical condition (Dementia) ON LICENSE OF [facility] Past Medical History Medical History A-fib Anemia CKD (chronic kidney disease) stage 2 Closed right hip fracture Dementia Frequent falls GERD (gastroesophageal reflux disease) HTN (hypertension) Hyperlipidemia Hypothyroid Non-Hodgkin lymphoma dx in 2009, with chemotherapy and radiation Surgical History Surgical History History of hysterectomy History of knee replacement, total bilateral History of right hip replacement Hx of appendectomy Family History Family History Mother Hypertension Father Acute myocardial infarction Other Diabetes mellitus Family history of arthritis Family history of cardiovascular disease Family history of malignant neoplasm Social History Social History Smoking packs per day: 0.25 Smoking cigarettes per day: 5.0 Smoking status: Former smoker Tobacco type: cigarettes Smoking end date: 10/06/1959 Alcohol intake: current Drinks per week: 1 Substance use: never Substance use type: does not use Gender identity (if verbalized by the patient): Female Spiritual care concerns: No Meds Home Medications and Allergies Home Medications Medication Instructions Recorded Confirmed Type Eliquis 2.5 mg PO BID 05/26/21 05/26/21 History bumetanide 1 mg PO DAILY 05/26/21 05/26/21 History diltiazem HCl 30 mg PO BID 05/26/21 05/26/21 History ergocalciferol (vitamin D2) 50,000 unit PO USEASDIRECTD 05/26/21 05/26/21 History escitalopram oxalate 10 mg PO DAILY 05/26/21 05/26/21 History levothyroxine 75 mcg PO DAILY 05/26/21 05/26/21 History magnesium oxide 400 mg PO DAILY 05/26/21 05/26/21 History mirtazapine 7.5 mg PO HS 05/26/21 05/26/21 History nystatin [Nystop] 100,000 unit TOPICAL DAILY 05/26/21 05/26/21 History omeprazole 40 mg PO DAILY 05/26/21 05/26/21 History spironolactone 25 mg PO DAILY 05/26/21 05/26/21 History aspirin 81 mg PO QAM 30 Days #30 tablet 05/29/21 Rx atorvastatin 20 mg PO DAILY 30 Days #30 tablet 05/29/21 Rx ondansetron HCl [Zofran] 4 mg PO Q8H PRN #10 tablet 09/12/21 Rx tramadol 50 mg PO BID PRN #14 tablet 09/12/21 Rx Allergies Allergy/AdvReac Type Severity Reaction Status Date / Time scopolamine Allergy Unknown UNKNOWN Verified 09/12/21 11:42 Tetanus Vaccines and Toxoid Allergy Unknown SWELLING Verified 09/12/21 11:42 Vital Signs Vital Signs - 24 hr 09/26/21 15:31 09/26/21 17:59 Temperature 98.4 F Pulse Rate 88 87 Respiratory Rate 20 18 Blood Pressure 140/82 151/80 H Pulse Oximetry 100 100
--- NOTE | 2021-09-26 20:51 | ED.GENADULT ---
HPI - General Adult General Chief complaint: Urogenital-Female Stated complaint: difficulty urinating Time Seen by Provider: 09/26/21 18:07 Source: patient and family Mode of arrival: ambulatory Limitations: no limitations History of Present Illness HPI narrative: 85-year-old with a history of dementia, hypertension was brought in by her stating that she was unable to urinate for past 2 days. Patient denies any chest pain or shortness of breath or abdominal pain. As per the patient forgets to drink water water. Onset (ago): day(s) (2) Associated symptoms: denies other symptoms Related Data Home Medications Medication Instructions Recorded Confirmed Eliquis 2.5 mg PO BID 05/26/21 05/26/21 bumetanide 1 mg PO DAILY 05/26/21 05/26/21 diltiazem HCl 30 mg PO BID 05/26/21 05/26/21 ergocalciferol (vitamin D2) 50,000 unit PO USEASDIRECTD 05/26/21 05/26/21 escitalopram oxalate 10 mg PO DAILY 05/26/21 05/26/21 levothyroxine 75 mcg PO DAILY 05/26/21 05/26/21 magnesium oxide 400 mg PO DAILY 05/26/21 05/26/21 mirtazapine 7.5 mg PO HS 05/26/21 05/26/21 nystatin [Nystop] 100,000 unit TOPICAL DAILY 05/26/21 05/26/21 omeprazole 40 mg PO DAILY 05/26/21 05/26/21 spironolactone 25 mg PO DAILY 05/26/21 05/26/21 Allergies Allergy/AdvReac Type Severity Reaction Status Date / Time scopolamine Allergy Unknown UNKNOWN Verified 09/12/21 11:42 Tetanus Vaccines and Toxoid Allergy Unknown SWELLING Verified 09/12/21 11:42 Review of Systems Review of Systems: All systems reviewed & are unremarkable except as noted in HPI and below Constitutional: Constitutional: Reports no additional constitutional complaints Eyes: Eyes: Reports no additional eye complaints ENT: Reports system reviewed and no additional complaints, except as documented Cardiovascular: Cardiovascular: Reports no additional cardiovascular complaints Respiratory: Respiratory: Reports no additional respiratory complaints Gastrointestinal: Gastrointestinal: Reports no additional gastrointestinal complaints Musculoskeletal: Musculoskeletal: Reports no additional musculoskeletal complaints PMFSH Past Medical History Medical History A-fib Anemia CKD (chronic kidney disease) stage 2 Closed right hip fracture Dementia Frequent falls GERD (gastroesophageal reflux disease) HTN (hypertension) Hyperlipidemia Hypothyroid Non-Hodgkin lymphoma dx in 2009, with chemotherapy and radiation Surgical History Surgical History History of hysterectomy History of knee replacement, total bilateral History of right hip replacement Hx of appendectomy Family History Family History Mother Hypertension Father Acute myocardial infarction Other Diabetes mellitus Family history of arthritis Family history of cardiovascular disease Family history of malignant neoplasm Social History Social History Smoking packs per day: 0.25 Smoking cigarettes per day: 5.0 Smoking status: Former smoker Tobacco type: cigarettes Smoking end date: 10/06/1959 Alcohol intake: never Substance use: never Substance use type: does not use Gender identity (if verbalized by the patient): Female Spiritual care concerns: No Exam Narrative: GENERAL: Well-appearing, well-nourished, and in no acute distress. HEAD: Normocephalic, atraumatic. EYES: PERRLA and EOMI NECK: Supple. CHEST: Clear to auscultation. No respiratory distress. HEART: Regular rate and rhythm. No murmur heard. Normal peripheral pulses. ABDOMEN: Soft, nontender, nondistended, normal active bowel sounds. EXTREMITIES: Normal range of motion. No edema. SKIN: Warm, dry, no rash. NEURO: No focal deficits. Alert PSYCH: Normal mood and affect. Course Course Emergency Course: Inform patient
[2021-09-26 20:52] VITALS: BP 112/72; PULSE 76; RESP 22; O2SAT 99
[2021-09-26] MEDS: SODIUM CHLORIDE 0.9% IV 1,000 ML 100 ML (21:28)
[2021-09-26 23:11] VITALS: BP 144/70; PULSE 94; RESP 16; O2SAT 99
[2021-09-27] VITALS: BP 128/65; PULSE 93; RESP 20; TEMP 36.2; O2SAT 99
[2021-09-27 00:09] VITALS: BMI 27.3
--- NOTE | 2021-09-27 00:34 | ADMGEN ---
This patient, Cristal Laureano, was admitted to 2 Medical Room 258-01. Patient oriented to hospital policies and general routines including ID bracelet, bed and alarms, visiting hours, pain management, procedures, bathroom and other care routines, personal items, smoking policy, room service/diet, and visiting hours. Information on how to activate the Rapid Response Team has been discussed. Patient/Family are encouraged to report perceived risks to care and to ask questions if they do not understand what they are told or what they should do.
[2021-09-27] MEDS: LORazepam INJ (*CRX) 2 MG/ML VIAL 0.5 MG IV PUSH (01:38)
[2021-09-27 04:00] VITALS: BP 148/89; PULSE 102; RESP 22; TEMP 36.2; O2SAT 9
[2021-09-27 06:35] LABS: Anion Gap 6 mmol/L (8-16); Blood Urea Nitrogen 32 mg/dL (7-17); Calcium 9.4 mg/dL (8.4-10.2); Carbon Dioxide 25 mmol/L (22-30); Chloride 104 mmol/L (98-107); Estimated CRCL calculation 23 ml/min; Estimated Glomerular Filt Rate 29; Glucose 82 mg/dL (65-110); Potassium 3.9 mmol/L (3.4-5.0); Sodium 135 mmol/L (137-145)
[2021-09-27 08:37] VITALS: BP 145/74
[2021-09-27 08:39] VITALS: BP 145/71; BP 148/76; PULSE 100; RESP 20; TEMP 36.8; O2SAT 96
[2021-09-27] MEDS: ENOXAPARIN 80 MG/0.8 ML SYRINGE 75 MG SUB-Q (09:13)
[2021-09-27] MEDS: SODIUM CHLORIDE 0.9% IV 1,000 ML 50 ML IV CONT (09:16)
[2021-09-27 12:44] VITALS: BP 149/58; PULSE 99; RESP 20; TEMP 36.4; O2SAT 94
--- NOTE | 2021-09-27 14:38 | PM.DS ---
DS: Admitting Diagnosis Discharge Date 09/27/21 Admitting Diagnosis Failure to thrive DS: Discharge Diagnosis Discharge Diagnosis (1) [id number] kidney injury: Code(s): N17.9 - Acute kidney failure, unspecified; N18.9 - Chronic kidney disease, unspecified Status: Acute Assessment and Plan: Patient is an 85-year-old woman with a history of stroke, atrial fibrillation on Eliquis, hypertension, dementia, who lives at the assisted living facility with her , who presented to emergency room after she was not eating or drinking for a few days and noticed a decrease in her urine output. Initial vitals showed blood pressure stable at 1 40/82, heart rate 88, afebrile, normal oxygenation on room air. Initial labs showed normal white blood cell count, normocytic anemia with a hemoglobin of 10.5, hematocrit 32%, normal differential, slight hyponatremia at 132, renal function showing acute on chronic renal disease with a creatinine at 2.3, BUN 41, normal LFTs, urinalysis slightly abnormal with trace leukocyte esterase and wbc's 10-15. She is not having any urinary symptoms and has been does not complain of any worsening confusion, weakness, falls. Patient was admitted to the hospital with IV fluid hydration and recheck renal function in the morning. Overnight patient's renal function improved to creatinine 1.7, her baseline is 1.3-1.5. She is otherwise back to her baseline as per her at bedside. Patient did well with therapy and she is stable for discharge back to her assisted living facility. I did adjust her home medications for which she was on Bumex 1 mg and I believe this is too much diuretic for her. I discontinued the Bumex and started Lasix 40 mg and continued her spironolactone 25 mg. I will check a BMP next week never follow with primary care provider. Return to ER warnings given. Follow-up instructions given. The patient and understand agree with the plan all questions answered. Patient's urine culture came back 09/28/2021 after she was discharged yesterday showing greater than 100,000 enterococcus species. Will wait for sensitivities then send antibiotics to the patient as an outpatient. (2) Orthostatic hypotension: Code(s): I95.1 - Orthostatic hypotension Status: Acute Assessment and Plan: She did not have orthostatic hypotension (3) GERD (gastroesophageal reflux disease): Code(s): K21.9 - Gastro-esophageal reflux disease without esophagitis Status: Acute Assessment and Plan: Continue PPI (4) A-fib: Code(s): I48.91 - Unspecified atrial fibrillation Status: Acute Assessment and Plan: Rate control and anticoagulated (5) CVA (cerebral vascular accident): Code(s): I63.9 - Cerebral infarction, unspecified Status: Acute Assessment and Plan: Chronic (6) Grade II diastolic dysfunction: Code(s): I51.89 - Other ill-defined heart diseases Status: Acute Assessment and Plan: Euvolemic at this time DS: Summary Hospital Course Hospital Course: See above Status at Discharge Cognitive/behavioral status at discharge: Stable, improved. Time Spent with Patient Time attestation: Total time spent providing and/or coordinating discharge services: 42 Time spent: Greater than 30 minutes Exam Narrative: General: 85-year-old woman laying flat in bed with with sitting in the chair. Appears comfortable. In no acute distress. Skin: No jaundice or cyanosis. Good skin turgor. Neck: Full range of motion. Supple. Respiratory: Lungs are clear to auscultation bilaterally. No bony chest wall tenderness. Cardiovascular: The heart has a regular rate and rhythm without murmur. Lower extremities: No lower extremity edema. Distal pulses are easily palpated. No calf tenderness to palpation. Gastrointestinal: The abdomen is soft, nontender and nondistended with acti
[2021-09-27 16:00] LABS: EDCOVIDSCREEN Negative (Negative)
== END 2021-09-27 16:28 | DRG 683 ==
LOC: ANHED 20:55 → ANH2MED 22:17
PROVIDERS: Physician Assistant; Admitting Provider Internal Medicine; Emergency Provider Family Medicine; PCP Family Medicine; Visit Provider Internal Medicine
DX: N17.9 Acute kidney failure, unspecified (principal); I48.20 Chronic atrial fibrillation, unspecified; N39.0 Urinary tract infection, site not specified; E87.1 Hypo-osmolality and hyponatremia; Z20.822 Contact with and (suspected) exposure to COVID-19; B95.2 Enterococcus as the cause of diseases classified elsewhere; D64.9 Anemia, unspecified; I12.9 Hypertensive chronic kidney disease with stage 1 through stage 4 chronic kidney disease, or unspecified chronic kidney disease; N18.2 Chronic kidney disease, stage 2 (mild); F03.90 Unspecified dementia, unspecified severity, without behavioral disturbance, psychotic disturbance, mood disturbance, and anxiety; E78.5 Hyperlipidemia, unspecified; K21.9 Gastro-esophageal reflux disease without esophagitis; I95.1 Orthostatic hypotension; E03.9 Hypothyroidism, unspecified; I51.89 Other ill-defined heart diseases; Z96.641 Presence of right artificial hip joint; Z96.653 Presence of artificial knee joint, bilateral; R29.6 Repeated falls; Z85.72 Personal history of non-Hodgkin lymphomas; Z87.891 Personal history of nicotine dependence; Z90.49 Acquired absence of other specified parts of digestive tract; Z90.710 Acquired absence of both cervix and uterus; Z86.73 Personal history of transient ischemic attack (TIA), and cerebral infarction without residual deficits; Z79.01 Long term (current) use of anticoagulants
CPT/HCPCS: 36415; 51701; 80048; 80053; 81001; 85025; 87077; 87086; 87088; 87186; 87426; 96360; 97161; 97165; 99285; C9803; J1650; J2060; J7030; J7040

== ENCOUNTER 2021-09-29 16:17 | Emergency (ER) | payer MEDICARE, SELFPAY ==
--- NOTE | ~2021-09-29 | CT_ITS ---
EXAMINATION: CT abdomen pelvis wo con DATE: 09/29/2021 18:42 INDICATION: Abdominal pain TECHNIQUE: Computed tomography (CT) of the abdomen and pelvis was performed without intravenous contr ast. Automated exposure control and iterative reconstruction technique were employed. The dose-length product was 800.55 mGy-cm. COMPARISON: 08/05/2018 and 05/25/2018 FINDINGS: Evaluation of the lower chest and abdomen mildly limited by scattered motion artifact. Mild bibasilar atelectasis. Mild cardiomegaly. Dense aortic valve and mitral annular calcification. No pericardial or pleural effusion. Status post cholecystectomy. Liver, spleen, pancreas and bilateral adrenal gland s are normal. Bilateral renal cysts, the largest on the left measuring 4.2 cm. No urolithiasis or hyd ronephrosis. Moderate to large amount of stool throughout the colon including a 5.3 cm ball of stool at the rectum. There is mild associated rectal wall thickening suggesting stercoral colitis. The ante rior wall of the transverse colon protrudes into a small wide mouthed supraumbilical ventral hernia. No bowel obstruction. Bladder is normal. The uterus is not identified and has likely been surgically resected. No free intraperitoneal gas or fluid. No pathologically enlarged abdominal or pelvic lympha denopathy. Mild lumbar levoscoliosis with moderate spondylosis. Stable appearance of chronic T10-L2 c ompression and burst fractures. No significant interval change since 2018 in mixed lytic and scleroti c lesions at the bilateral posterior iliac spines which suggests a benign etiology such as Paget's di sease or bone infarcts. Old healed intertrochanteric fracture the proximal right femur with partially visualized antegrade donya and femoral neck dynamic compression screw fixation. IMPRESSION: 1. Mild wall thickening at the rectum with moderate amount of colonic stool including 5.3 similar bal l of stool at rectum which suggests constipation and secondary stercoral colitis. Differential includ es less likely infectious, inflammatory or ischemic colitis/proctitis. 2. Mild cardiomegaly. 3. Anterior wall of the nonobstructed transverse colon mildly bulges into a small wide mouthed supra umbilical ventral hernia. Reviewed, dictated and finalized at location H. ENTER ROUGH IMPRESSION: 1. Mild wall thickening at the rectum with moderate amount of colonic stool inc luding 5.3 similar ball of stool at rectum which suggests constipation and seco ndary stercoral colitis. Differential includes less likely infectious, inflamma tory or ischemic colitis/proctitis. 2. Mild cardiomegaly. 3. Anterior wall of the nonobstructed transverse colon mildly bulges into a sma ll wide mouthed supra umbilical ventral hernia.
[2021-09-29 16:21] VITALS: BP 124/67; PULSE 83; RESP 16; TEMP 36.4; O2SAT 100
[2021-09-29 18:03] VITALS: BP 142/88; PULSE 78; RESP 18; TEMP 36.7; O2SAT 99
--- NOTE | 2021-09-29 18:14 | ED.ABDPAIN ---
HPI - Abdominal Pain General Chief Complaint: Abdominal Pain Stated Complaint: low abd pain Time Seen by Provider: 09/29/21 17:56 Source: patient Mode of arrival: ambulatory Limitations: no limitations History of Present Illness HPI narrative: Patient is an 85-year-old female due to abdominal pain. states that after eating patient started complaining of abdominal pain. Patient denies having any abdominal pain and states that she is fine and has no complaints at this time. Patient denies any chest pain, shortness of breath, nausea, vomiting, diarrhea, urinary symptoms, fever or chills. states that patient is currently on oral antibiotics due to a UTI. Related Data Home Medications Medication Instructions Recorded Confirmed Eliquis 2.5 mg PO BID 05/26/21 09/27/21 diltiazem HCl 30 mg PO BID 05/26/21 09/27/21 ergocalciferol (vitamin D2) 50,000 unit PO USEASDIRECTD 05/26/21 09/27/21 escitalopram oxalate 10 mg PO DAILY 05/26/21 09/27/21 levothyroxine 75 mcg PO DAILY 05/26/21 09/27/21 magnesium oxide 400 mg PO DAILY 05/26/21 09/27/21 mirtazapine 7.5 mg PO HS 05/26/21 09/27/21 nystatin [Nystop] 100,000 unit TOPICAL DAILY 05/26/21 09/27/21 omeprazole 40 mg PO DAILY 05/26/21 09/27/21 spironolactone 25 mg PO DAILY 05/26/21 09/27/21 buspirone 7.5 mg PO BID 09/27/21 09/27/21 Allergies Allergy/AdvReac Type Severity Reaction Status Date / Time scopolamine Allergy Unknown UNKNOWN Verified 09/12/21 11:42 Tetanus Vaccines and Toxoid Allergy Unknown SWELLING Verified 09/12/21 11:42 Review of Systems Review of Systems: All systems reviewed & are unremarkable except as noted in HPI and below Constitutional: Constitutional: Denies body ache(s), Denies chills, Denies excessive sweating, Denies fatigue, Denies fever(s), Denies headache(s), Denies lethargy, Denies malaise, Denies weakness and Denies weight loss Eyes: Eyes: Denies blurry vision, Denies change in vision and Denies loss of vision ENT: Denies dizziness, Denies ear discharge, Denies headache(s), Denies lip swelling, Denies epistaxis, Denies nasal congestion, Denies neck pain, Denies throat swelling and Denies tongue swelling Cardiovascular: Cardiovascular: Denies chest pain, Denies chest pain at rest, Denies chest pain with activity, Denies diaphoresis, Denies rapid heart rate, Denies edema, Denies irregular heart rhythm, Denies lightheadedness, Denies palpitations, Denies dyspnea and Denies dyspnea on exertion Respiratory: Respiratory: Denies chest congestion, Denies cough, Denies hemoptysis, Denies dyspnea and Denies dyspnea on exertion Gastrointestinal: Gastrointestinal: Denies abdominal pain, Denies melena, Denies hematochezia, Denies diarrhea, Denies nausea, Denies vomiting and Denies hematemesis Musculoskeletal: Musculoskeletal: Denies abnormal gait, Denies deformity, Denies joint swelling, Denies limited range of motion, Denies neck pain and Denies numbness Neurologic: Denies Abnormal speech present, Denies abnormal gait, Denies confusion, Denies dizziness, Denies headache(s), Denies focal weakness, Denies loss of vision, Denies numbness, Denies Other visual disturbances, Denies Sensory deficit (Neuro) and Denies weakness Psychiatric: Psychiatric: Denies confusion, Denies depression, Denies auditory hallucinations, Denies homicidal ideation and Denies suicidal ideation Endocrine: Endocrine: Denies cold intolerance, Denies excessive sweating, Denies fatigue, Denies heat intolerance and Denies palpitations Hematologic/Lymphatic: Hematologic/Lymphatic: Denies easy bleeding and Denies easy bruising Allergic/Immunologic: Allergic/Immunologic: Denies lip swelling, Denies throat swelling and Denies tongue swelling PMFSH Past Medical History Medical History A-fib Anemia CKD (chronic kidney disease) stage 2 Closed right hip fracture Dementia Frequent falls GERD (gastroesophageal reflux disease) HTN (hypertension) H
[2021-09-29 19:15] LABS: Basophils Percent Auto 0.6 % (0.2-1.2); Eosinophils Absolute Auto 0.2 K/mm3 (0-0.3); Eosinophils Percent Auto 2.8 % (0-4.4); Hematocrit 31.3 % (37.0-47.0); Hemoglobin 10.1 g/dL (12.0-15.0); Immature Granulocyte Absolute 0.02 K/mm3 (0.00-0.031); Immature Granulocyte Percent A 0.3 % (0-0.5); Lymphocytes Absolute Auto 1.18 K/mm3 (0.9-3.2); Lymphocytes Percent Auto 17.5 % (18.3-44.2); Mean Corpuscular HGB Conc 32.3 g/dl (32-36); Mean Corpuscular Hemoglobin 26.4 pg (26-34); Mean Corpuscular Volume 81.9 fl (80-100); Mean Platelet Volume 9.8 fl (7.4-10.4); Monocytes Absolute Auto 0.7 K/mm3 (0.1-0.6); Monocytes Percent Auto 10.8 % (2.6-8.5); Neutrophils Absolute Auto 4.6 K/mm3 (1.3-6.7); Platelet Count Result 209 k/mm3 (150-375); Red Blood Count 3.82 M/mm3 (4.2-5.4); Red Cell Distribution Width 14.4 % (11.5-14.5); White Blood Count 6.7 K/mm3 (4.5-10.0)
[2021-09-29 19:26] LABS: Alanine Aminotransferase 13 U/L (4-35); Albumin Level 4.3 g/dL (3.5-5.1); Alkaline Phosphatase 84 U/L (38-126); Anion Gap 6 mmol/L (8-16); Aspartate Amino Transferase 34 U/L (14-36); Bilirubin,Total 0.7 mg/dL (0.2-1.3); Blood Urea Nitrogen 31 mg/dL (7-17); Calcium 9.7 mg/dL (8.4-10.2); Carbon Dioxide 23 mmol/L (22-30); Chloride 103 mmol/L (98-107); Estimated CRCL calculation 21 ml/min; Estimated Glomerular Filt Rate 27; Glucose 87 mg/dL (65-110); Lipase 95 U/L (23-300); Potassium 4.1 mmol/L (3.4-5.0); Sodium 132 mmol/L (137-145)
[2021-09-29 19:51] VITALS: BP 154/81; PULSE 70; O2SAT 100
[2021-09-29] MEDS: MAGNESIUM CITRATE 300 ML BTL 150 ML PO (20:52)
[2021-09-29] MEDS: LACTATED RINGERS 1,000 ML 999 ML IV CONT (20:52)
[2021-09-29] MEDS: DOCUSATE SODIUM 100 MG CAPSULE PO (21:27)
[2021-09-29] MEDS: polyethylene glycoL 3350 17 GM POWD.PACK PO (21:27)
[2021-09-29 22:23] VITALS: BP 122/62; PULSE 78; RESP 16; O2SAT 99
== END 2021-09-29 22:25 ==
PROVIDERS: Emergency Provider Emergency Medicine; PCP Family Medicine
DX: R10.9 Unspecified abdominal pain (principal); I48.91 Unspecified atrial fibrillation; I12.9 Hypertensive chronic kidney disease with stage 1 through stage 4 chronic kidney disease, or unspecified chronic kidney disease; N18.2 Chronic kidney disease, stage 2 (mild); F03.90 Unspecified dementia, unspecified severity, without behavioral disturbance, psychotic disturbance, mood disturbance, and anxiety; E78.5 Hyperlipidemia, unspecified; E03.9 Hypothyroidism, unspecified; D64.9 Anemia, unspecified; K21.9 Gastro-esophageal reflux disease without esophagitis; Z85.72 Personal history of non-Hodgkin lymphomas; Z92.21 Personal history of antineoplastic chemotherapy; Z92.3 Personal history of irradiation; Z79.01 Long term (current) use of anticoagulants; Z96.653 Presence of artificial knee joint, bilateral; Z96.641 Presence of right artificial hip joint; Z87.891 Personal history of nicotine dependence; I51.7 Cardiomegaly; K42.9 Umbilical hernia without obstruction or gangrene; R93.3 Abnormal findings on diagnostic imaging of other parts of digestive tract
CPT/HCPCS: 36415; 74176; 80053; 83690; 85025; 96360; 99284; A9270; J7120

== ENCOUNTER 2021-10-26 07:17 | Outpatient (RCR) | payer MEDICARE, SELFPAY ==
[2021-10-26] VITALS (12 sets, daily range): BP systolic 97–138; BP diastolic 48–68; PULSE 74–94; RESP 16–22; TEMP 36.7–37.4; O2SAT 95–100
[2021-10-26 08:42] LABS: Hematocrit 23.1 % (37.0-47.0); Hemoglobin 7.4 g/dL (12.0-15.0)
[2021-10-26] MEDS: SODIUM CHLORIDE 0.9% IV 250 ML 30 ML IV CONT (10:00)
[2021-10-26] MEDS: FUROSEMIDE INJ 40 MG/4 ML VIAL IV PUSH (13:05)
== END 2022-01-24 23:59 | disposition home or self-care (01) ==
LOC: ANHCPCTRAN 07:17
PROVIDERS: PCP Family Medicine; Visit Provider Nurse Practitioner Family
DX: D64.9 Anemia, unspecified (principal)
CPT/HCPCS: 36415; 36430; 85014; 85018; 86850; 86900; 86901; 86920; 96374; J1940; J7050; P9016

== ENCOUNTER 2021-11-04 19:46 | Emergency (ER) | payer MEDICARE, SELFPAY ==
--- NOTE | ~2021-11-04 | CT_ITS ---
EXAMINATION: CT brain wo con DATE: 11/04/2021 21:26 INDICATION: Ground-level fall. Right head, neck and shoulder pain TECHNIQUE: Computed tomography (CT) of the head was performed without intravenous contrast. The mA wa s adjusted according to patient size. Iterative reconstruction technique was employed. Exam dose: 90 8.00 mGy-cm total exam DLP. COMPARISON: 05/27/2021 CT brain FINDINGS: Examination is limited due to patient motion. Right parietal cerebrovascular accident is noted. There is moderately prominent central and cortical cerebral atrophy. Bilateral vertebral artery, basilar artery and bilateral carotid siphon internal carotid artery calci fications are noted. There is nonspecific diminished attenuation cerebral white matter, likely due to chronic small vessel ischemic changes. No intracranial mass lesion or hemorrhage, midline shift or mass effect is noted. No skull fracture is noted. IMPRESSION: Limited examination due to motion; no acute intracranial finding or significant change s [place] 05/27/2021 is detected. Reviewed, dictated and finalized at [facility]. Reviewed, dictated and finalized at location A. ADMINISTRATOR IMPRESSION: Limited examination due to motion; no acute intracranial finding o r significant change since 05/27/2021 is detected.
--- NOTE | ~2021-11-04 | CT_ITS ---
EXAMINATION: CT cervical spine wo con DATE: 11/04/2021 21:26 INDICATION: Ground-level fall. Right head and neck pain, shoulder pain TECHNIQUE: Computed tomography (CT) of the cervical spine was performed without intravenous contrast. Automated exposure control and iterative reconstruction technique were employed. Exam dose: 326.74 mGy-cm total exam DLP. COMPARISON: None FINDINGS: C1 and C2 are normally aligned and the odontoid process is intact. Chronic moderately severe burst fracture deformity of C3, stable since 03/06/2018. There is severe burst fracture deformity of T2, not significantly changed since 03/06/2018. There is moderately severe degenerative disc disease at C4-5. There is severe degenerative disc disease and mild retrolisthesis at C5-6. There is mildly severe degenerative disc disease at C6-7. There is 3 mm anterolisthesis at C7-T1. These findings are all present and stable compared to 03/06/2018. No interval fracture or dislocation or locked facet is detected. Degenerative changes at the apophyseal joints. There is prominent uncovertebral joint spurring on the left it C4-5 and bilaterally at C5-6 and C6-7. IMPRESSION: Stable burst fractures of C3 and T2; no interval fracture is noted since 03/06/2018 Relatively stable prominent cervical spondylosis Reviewed, dictated and finalized at [facility]. Reviewed, dictated and finalized at location A. RTRAIN CALIBRATION ENGINEER
--- NOTE | ~2021-11-04 | XR_ITS ---
XR wrist RT min 3V DATE: 11/04/2021 21:08 INDICATION: Generalized right arm pain TECHNIQUE: 3 views COMPARISON: 01/03/2020 right wrist FINDINGS: There is diffuse osteopenia. There is old intra-articular fracture deformity of the distal radius and old ununited ulnar styloid p rocess fracture. There is chronic depression of the radius at the radial scaphoid joint. There is chronic scapholunate dissociation, also present on 01/03/2020. There is prominent osteophytic change at the triscaphe and first carpometacarpal joints. 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 NESS INTELLIGENCE ANALYST
--- NOTE | ~2021-11-04 | XR_ITS ---
XR shoulder RT min 2V DATE: 11/04/2021 21:07 INDICATION: Generalized right arm pain TECHNIQUE: AP and Neer views COMPARISON: 09/12/2021 right shoulder FINDINGS: There is chronic anterior glenohumeral dislocation and proximal humeral (likely surgical ne ck) fracture which do not appear significant changed since 09/12/2021. The, clavicular joint appears normally aligned. There is diffuse osteopenia. Multiple fracture deformities of the thoracic spine. One or more right r ib fractures of uncertain age. IMPRESSION: Chronic anterior dislocation at proximal humeral fracture, not significantly changed in a ppearance compared to 09/12/2021 Reviewed, dictated and finalized at location A. CT SERVICE PROFESSIONAL IMPRESSION: Chronic anterior dislocation at proximal humeral fracture, not sign ificantly changed in appearance compared to 09/12/2021
--- NOTE | ~2021-11-04 | XR_ITS ---
EXAMINATION: XR shoulder RT min 2V DATE: 11/04/2021 22:13 INDICATION: Right shoulder dislocation status post reduction. TECHNIQUE: 2 views of right shoulder were obtained. COMPARISON: Right shoulder radiographs 11/04/2021, 04/22/2018 FINDINGS: There is anterior dislocation of humeral head with respect to glenoid. There is an old heal ed fracture of proximal right humerus. The glenohumeral joint is not well profiled. The acromioclavic ular joint is normal. There is an old healed right rib fracture. IMPRESSION: 1. Persistent anterior right shoulder dislocation. Reviewed, dictated and finalized at location A. ING COORDINATOR
--- NOTE | ~2021-11-04 | XR_ITS ---
XR elbow LT min 3V DATE: 11/04/2021 21:07 INDICATION: Generalized right arm pain TECHNIQUE: 3 nonstandard views COMPARISON: None FINDINGS: There is diffuse osteopenia. These are nonstandard views. A true lateral is not included to evaluate for joint effusion. No obvious fracture, dislocation or joint effusion is noted. IMPRESSION: Limited examination due to nonstandard positioning, lack of true lateral view Osteopenia No obvious fracture or dislocation or joint effusion Repeat examination to include a true lateral view is recommended. Reviewed, dictated and finalized at location A. ICATION DEPARTMENT SUPERVISOR IMPRESSION: Limited examination due to nonstandard positioning, lack of true la teral view Osteopenia No obvious fracture or dislocation or joint effusion Repeat examination to include a true lateral view is recommended.
[2021-11-04 20:01] VITALS: BP 147/79; PULSE 89; RESP 17; TEMP 37; O2SAT 100
--- NOTE | 2021-11-04 20:34 | ED.UPPEXIN ---
HPI - Extremity Injury (Upper) General Chief Complaint: Extremity Injury, Upper Stated Complaint: GLF with Right shoulder dislocation Time Seen by Provider: 11/04/21 20:14 Source: patient, RN notes reviewed and old records reviewed History of Present Illness HPI narrative: Patient referred from a nursing facility for right upper extremity injury. Patient was using her roller scooter to get around when she fell. Fall was witnessed by staff members there is no loss of consciousness no striking of the head patient complained of pain to the right shoulder. Staff there is there is a small abrasion and monitor the patient over the next couple days. The performed an x-ray yesterday and appeared to be dislocated so they referred her to the ER today for further evaluation. Patient ports pain to the right shoulder but is unsure as to what happened. She denies any focal numbness or weakness. Review of Systems Review of Systems: CONSTITUTIONAL: Denies fever, chills, or sweats. EYES: Denies visual changes, redness, or discharge. ENT: Denies rhinorrhea, congestion, sore throat, or otalgia. CARDIOVASCULAR: Denies chest pain, palpitations, or edema. RESPIRATORY: Denies cough or dyspnea. GASTROINTESTINAL: Denies abdominal pain, nausea, vomiting, or diarrhea. GENITOURINARY: Denies dysuria or hematuria. SKIN: Denies rash or itching. MUSCULOSKELETAL: Denies back pain, or myalgia. NEUROLOGIC: Denies headache, numbness, dizziness, or weakness. PSYCHIATRIC: Denies anxiety or depression. All systems reviewed & are unremarkable except as noted in HPI and below Course Course Emergency Course: 11/04/2021 2257: Search EMR my name and date of and was able to pull up additional history and encounters on the patient. Patient admitted to the facility she has been evaluated twice in the past several months for acute on chronic kidney disease she is also previously been seen for shoulder injury in early September where fracture dislocation on the right side was noted then and appear to be chronic at that time. There did not appear to be any acute changes in her imaging today. I did discuss the family that I would not have attempted the manipulation if I had prior imaging. Given the chronicity of her symptoms she is appropriate for nursing facility with supportive therapies again family would prefer to follow-up with her orthopedic team discuss additional management options. Plan discussed with registration the EMR issue with not pulling up patient's prior records. Vital Signs Vital signs: Vital Signs Temperature 37.0 C 11/04/21 20:01 Pulse Rate 89 11/04/21 20:01 Respiratory Rate 17 11/04/21 20:01 Blood Pressure 147/79 H 11/04/21 20:01 Pulse Oximetry 100 11/04/21 20:01 Temperature 37.0 C 11/04/21 20:01 Pulse Rate 81 11/05/21 00:42 Respiratory Rate 21 H 11/05/21 00:42 Blood Pressure 126/66 11/05/21 00:42 Pulse Oximetry 97 11/05/21 00:42 MDM - Extremity Injury (Upper) MDM Narrative Medical decision making narrative: Patient presented with right shoulder pain after a fall at her nursing facility. Initial imaging obtained and was concerning for dislocation. Family history EMS history and nursing facility history reports no prior injury to that extremity. Reduction attempted large amount of crepitus noted radiologist reviewed the imaging and noted chronic dislocation and fracture since early September 2021. Repeat films obtained and there is no change after manipulation. family reported the patient was here in September 2021 and they are unable to describe the circumstances of that evaluation and deny any knowledge of a shoulder injury. No prior imaging noted in the EMR no prior notes noted in the EMR. Family reports patient has declined surgery in the past and sees an orthopedic surgeon and [facility]. Given the duration of the dislocation and the fracture is recommended patient be evaluated for surgery she as previously declined and yessy
--- NOTE | 2021-11-04 20:57 | PC.NURSE ---
Pt in imaging at this time.
--- NOTE | 2021-11-04 21:41 | PC.NURSE ---
EDP at bedside for reduction of right shoulder
[2021-11-04 21:42] VITALS: BP 144/65; PULSE 87; RESP 19; O2SAT 98
--- NOTE | 2021-11-04 22:12 | PC.NURSE ---
This RN called [facility], spoke with Mariam BRIAN. This RN requesting paperwork on patient, states she will fax over chart. States the patient's right shoulder injury is not chronic, that the shoulder dislocation is acute.
--- NOTE | 2021-11-04 23:08 | PC.NURSE ---
Discussed EMR issue with registration, states issue will be resolved.
--- NOTE | 2021-11-04 23:35 | PC.NURSE ---
called [facility] to request transport. ETA [id number]
[2021-11-04 23:37] VITALS: BP 119/59; PULSE 82; RESP 20; O2SAT 94
--- NOTE | 2021-11-05 00:16 | PC.NURSE ---
[facility] called with ETA update - [id number]
[2021-11-05 00:42] VITALS: BP 126/66; PULSE 81; RESP 21; O2SAT 97
--- NOTE | 2021-11-05 01:32 | PC.NURSE ---
[facility] called with ETA of [id number]
--- NOTE | 2021-11-05 02:12 | PC.NURSE ---
Report given to Darius BRIAN
[2021-11-05 02:53] VITALS: BP 138/82; PULSE 76; RESP 14; O2SAT 97
== END 2021-11-05 02:55 ==
PROVIDERS: Emergency Provider Emergency Medicine; PCP Family Medicine
DX: M24.411 Recurrent dislocation, right shoulder (principal); N18.9 Chronic kidney disease, unspecified; M19.031 Primary osteoarthritis, right wrist; M85.89 Other specified disorders of bone density and structure, multiple sites; M47.812 Spondylosis without myelopathy or radiculopathy, cervical region; V00.141A Fall from scooter (nonmotorized), initial encounter
CPT/HCPCS: 23650; 70450; 72125; 73030; 73080; 73110; 99284; 99285; A4565

== ENCOUNTER 2021-11-30 11:13 | Inpatient (IN) | payer MEDICARE, SELFPAY ==
[2021-11-30] VITALS (28 sets, daily range): BP systolic 114–143; BP diastolic 51–113; PULSE 94–112; RESP 14–30; TEMP 35.8–36.6; O2SAT 90–100
--- NOTE | 2021-11-30 | ECHO_ITS ---
Patient Info Name: Cristal Laureano Age: 86 years : 1935 Gender: Female Ht: 64 in Wt: 170 lbs BSA: 1.89 m2 HR: 64 bpm BP: 126 / 71 mmHg Heart Rhythm: Sinus Rhythm Technical Quality: Good Exam Date: 11/30/2021 4:22 PM [facility] Room: 232 Patient Status: Outpatient Admit Date: 11/30/2021 Staff Ordering Physician: Ashley Reynoso PA-C Locker Room Attendant: Deja Langley RDCS Attending Provider: Ashley Reynoso PA-C Referring Physician: Angeles FORRESTER; Exam Type: CA echo doppler color flow Study Info Indications - chf hx/o Complete two-dimensional, color flow and Doppler transthoracic echocardiogram is performed. Summary 1. Complete two-dimensional, color flow and Doppler transthoracic echocardiogram is performed. 2. There is moderate concentric increased left ventricular wall thickness. 3. Left ventricular systolic function is normal, estimated at 60-65%. 4. Left atrial chamber dimension is severely enlarged. 5. There is severe aortic valve stenosis with a peak velocity of 461 cm/s, mean gradient of 50 mmHg, and aortic valve area of 0.7 cm2. 6. Compared with examination from 6 months ago there is no appreciable difference. Left Ventricle Left ventricular chamber dimension is normal. Left ventricular systolic function is normal, estimated at 60-65%. There is moderate concentric increased left ventricular wall thickness. The left ventricular diastolic function is grade I diastolic dysfunction. Right Ventricle Right ventricular chamber dimension is normal. Left Atria Left atrial chamber dimension is severely enlarged. Right Atria Right atrial chamber dimension is mildly enlarged. Aortic Valve The aortic valve is probable trileaflet. There is severe aortic valve sclerosis. There is severe aortic valve stenosis with a peak velocity of 461 cm/s, mean gradient of 50 mmHg, and aortic valve area of 0.7 cm2. There is mild aortic valve regurgitation. Pulmonic Valve The pulmonic valve is not well visualized. Mitral Valve The mitral valve has normal leaflets. There is mild mitral valve regurgitation. The mitral valve annulus is mildly calcified. Tricuspid Valve The tricuspid valve leaflets are normal. There is mild tricuspid valve regurgitation. Pericardium/Pleural The pericardium appears normal. Aorta The aortic root size at the sinus of Valsalva is normal. Left Ventricular Outflow Tract Name Value Normal LVOT 2D LVOT Diameter 2.0 cm LVOT Doppler LVOT Peak Gradient 4 mmHg LVOT Mean Gradient 2 mmHg LVOT VTI 19 cm LVOT VTI/AV VTI Ratio 0.2 LVOT Stroke Volume 62 ml LVOT CO 13.7 l/min LVOT CI 7.3 l/min/m2 Pulmonic Valve Name Value Normal PV Doppler -
--- NOTE | ~2021-11-30 | XR_ITS ---
EXAMINATION: XR chest 1V portable DATE: 11/30/2021 11:47 INDICATION: Shortness of breath TECHNIQUE: frontal view of the chest was obtained. COMPARISON: Chest radiograph dated 03/06/2018 FINDINGS: Lung volumes are decreased with worsening airspace opacities throughout both lungs. No pneumothorax o r definitive pleural effusion. Cardiomegaly. Patient is rotated towards the left. Severe spondylosis and several chronic compression fractures in the thoracic and lumbar spine. IMPRESSION: 1. Decrease in lung volumes with worsening scattered bilateral lung disease which could represent pne umonia, pulmonary edema, atelectasis or some combination thereof. Reviewed, dictated and finalized at location A. S SET UP IMPRESSION: 1. Decrease in lung volumes with worsening scattered bilateral lung disease whi ch could represent pneumonia, pulmonary edema, atelectasis or some combination thereof.
--- NOTE | ~2021-11-30 | CT_ITS ---
EXAMINATION: CTA chest PE abdomen pel EXAM DATE: 12/01/2021 09:49 INDICATION: hypoxia and abdominal mass . TECHNIQUE: Spiral CTA of the chest (pulmonary arteries) was performed with 100 cc Omnipaque 350 intr avenous contrast injection. Images were acquired during the pulmonary arterial phase. Coronal maxi mum intensity projection 3D-reconstructions were created by the technologist on dedicated workstation . Axial, coronal and sagittal reformatted images were reviewed. Spiral CT of the abdomen and pelvis was then performed with the same intravenous contrast injection. Axial, coronal and sagittal reform atted images were reviewed. The dose-length product (DLP) for this examination was 1398.94 mGy-cm. The exposure was tailored according to patient size (auto mA exposure control), and iterative recons truction (ASIR) was used as additional dose reduction technique. Comparison is made to prior examinat ion from 09/29/2021. FINDINGS: CHEST: The main, central pulmonary arteries are dilated which can indicate elevated pulmonary arteria l pressure, pulmonary arterial hypertension. Pulmonary arteries are well opacified and without intral uminal filling defects. No thoracic aortic dissection. Moderate right, small to moderate left pleu ral effusions. There is adjacent segmental atelectasis. Tracheobronchial tree is patent. There is no mediastinal, hilar or axillary lymphadenopathy. There is no pneumothorax. There is cardiomegal y. There is mild coronary arterial calcification, arterial sclerosis. Mitral annular calcifications a nd aortic valve calcifications. Upper abdominal wall dehiscence. ABDOMEN PELVIS: The liver, spleen, adrenal glands and pancreas are unremarkable. There are cholecyst ectomy clips. Pneumobilia which is common following cholecystectomy. Portal and splenic veins are pa tent. Kidneys enhance symmetrically. There is no hydronephrosis. Bilateral renal cysts. The uterus is not identified and has likely been surgically resected. The bladder is unremarkable. There is n o retroperitoneal or pelvic lymphadenopathy. There is mild scattered arteriosclerotic disease. There are no findings to suggest appendicitis. The stomach and small bowel are unremarkable. Modera tely distended rectal vault at 7 cm. Otherwise expected amount of colonic stool. No free intraperit kaur gas. There are no osteoblastic or osteolytic lesions identified. Right hip gamma nail. Suspic ion of iliac Paget's disease. Chronic thoracolumbar compression and burst fractures unchanged T10-L2 IMPRESSION: 1. Cardiomegaly and pulmonary arterial hypertension. 2. Interval development of moderate right, small to moderate left pleural effusions and adjacent seg mental atelectasis. 3. Moderately distended rectal vault. 4. Cholecystectomy, hysterectomy. Reviewed, dictated and finalized at location A. [employer] COUNTER MANAGER IMPRESSION: 1. Cardiomegaly and pulmonary arterial hypertension. 2. Interval development of moderate right, small to moderate left pleural effu sions and adjacent segmental atelectasis. 3. Moderately distended rectal vault. 4. Cholecystectomy, hysterectomy.
--- NOTE | 2021-11-30 11:14 | ECG_ITS ---
Measurements Intervals [place] Rate: 98 P: 72 SC: 195 QRS: -44 QRSD: 101 T: 86 QT: 429 QTc: 548 Interpretive Statements SINUS RHYTHM ATRIAL PREMATURE COMPLEXES LEFT AXIS DEVIATION DELAYED PRECORDIAL R/S TRANSITION BORDERLINE ST-T WAVE ABNORMALITY- HIGH LATERAL LEADS BASELINE ARTIFACT- I, II, AVR, V4 BORDERLINE ECG Electronically Signed On 11-30-2021 14:42:47 PHYSIOTHERAPY PRACTICE MANAGER by Joshua Flores D.O.
[2021-11-30 11:34] LABS: Alveolar/Arterial O2 Gradient 144.2 mmHg; Carboxyhemoglobin 0.1 % THb (0-2.0); Device NASAL CANNULA; Fractional Inspired Oxygen 36 %; HCO3 ABG 22.5 mEq/l (22.0-26.0); Methemoglobin ABG 0.4 %THb (0-1.5); Modified Allen's Test Pass; Oxygen Content ABG 12.3 %vol (16.0-22.0); Oxygen Saturation ABG 94.1 % (95.0-100.0); Oxyhemoglobin 91.7 % THb (90.0-100.0); PO2 ABG 69.6 mmHg (80.0-100.0); PO2 FiO2 Ratio Arterial Blood 1.93 %; Reduced Hemoglobin 7.8 %THb (0-5.0); Site Drawn LEFT RADIAL; Total Hemoglobin 9.5 g/dL (12.0-18.0); pH ABG 7.401 (7.350-7.450)
[2021-11-30] MEDS: IPRATROPIUM BR 0.02% INH SOLN 0.5 MG/2.5 ML VIAL 1 MG INHALATION (11:35)
[2021-11-30] MEDS: ALBUTEROL SULFATE NEB 2.5 MG/0.5 ML INH 10 MG INHALATION (11:35)
[2021-11-30 11:44] LABS: Basophils Absolute Auto 0.1 K/mm3 (0.0-0.1); Basophils Percent Auto 0.6 % (0.2-1.2); Eosinophils Absolute Auto 0.2 K/mm3 (0-0.3); Eosinophils Percent Auto 2.5 % (0-4.4); Hematocrit 28.2 % (37.0-47.0); Hemoglobin 8.6 g/dL (12.0-15.0); Immature Granulocyte Absolute 0.04 K/mm3 (0.00-0.031); Immature Granulocyte Percent A 0.5 % (0-0.5); Lymphocytes Absolute Auto 0.72 K/mm3 (0.9-3.2); Lymphocytes Percent Auto 8.5 % (18.3-44.2); Mean Corpuscular HGB Conc 30.5 g/dl (32-36); Mean Corpuscular Hemoglobin 27.7 pg (26-34); Mean Platelet Volume 9.9 fl (7.4-10.4); Monocytes Absolute Auto 0.6 K/mm3 (0.1-0.6); Monocytes Percent Auto 6.8 % (2.6-8.5); Neutrophils Absolute Auto 6.9 K/mm3 (1.3-6.7); Neutrophils Percent Auto 81.1 % (45.5-73.1); Platelet Count Result 289 k/mm3 (150-375); Red Cell Distribution Width 20.1 % (11.5-14.5); White Blood Count 8.5 K/mm3 (4.5-10.0)
[2021-11-30 11:55] LABS: INR 1.1; Prothrombin Time 13.3 Seconds (11.1-14.7)
[2021-11-30 12:13] LABS: Alanine Aminotransferase 11 U/L (4-35); Albumin Level 3.4 g/dL (3.5-5.1); Alkaline Phosphatase 93 U/L (38-126); Anion Gap 5 mmol/L (8-16); Aspartate Amino Transferase 29 U/L (14-36); Bilirubin,Total 0.7 mg/dL (0.2-1.3); Blood Urea Nitrogen 16 mg/dL (7-17); Calcium 9.1 mg/dL (8.4-10.2); Carbon Dioxide 26 mmol/L (22-30); Chloride 107 mmol/L (98-107); Estimated Glomerular Filt Rate 53; Glucose 114 mg/dL (65-110); Sodium 138 mmol/L (137-145)
[2021-11-30 12:27] LABS: NT Pro B Type Natriuretic Pept 4560 pg/mL (5-100); Troponin I 0.167 ng/mL (0.000-0.034)
--- NOTE | 2021-11-30 12:56 | ED.SOB ---
HPI - SOB/Dyspnea General Chief Complaint: Shortness of Breath/Dyspnea Stated Complaint: resp. distress Time Seen by Provider: 11/30/21 11:14 Source: patient, EMS and RN notes reviewed Mode of arrival: EMS History of Present Illness HPI Narrative: This is an 86 year old female with history of hypertension, hypothyroidism, chronic kidney disease, CHF who presents for evaluation of respiratory distress. EMS reports patient was in respiratory distress on their arrival. [facility] reported to staff patient was 80% on room air and her oxygen increase to % on 5 L and neb. EMS placed patient CPAP because it is reported she was breathing 40 times a minute. On arrival to ER, patient is in on distress. She denies cough, chest pain, shortness of breath, nausea, vomiting or fever. She does reports chronic leg swelling. She is oriented x 2 which is her baseline. Related Data Home Medications Medication Instructions Recorded Confirmed diltiazem HCl 30 mg PO BID 05/26/21 11/30/21 ergocalciferol (vitamin D2) 50,000 unit PO USEASDIRECTD 05/26/21 11/30/21 escitalopram oxalate 10 mg PO DAILY 05/26/21 11/30/21 levothyroxine 75 mcg PO DAILY 05/26/21 11/30/21 magnesium oxide 400 mg PO DAILY 05/26/21 11/30/21 mirtazapine 15 mg PO HS 05/26/21 11/30/21 omeprazole 40 mg PO DAILY 05/26/21 11/30/21 buspirone 7.5 mg PO BID 09/27/21 11/30/21 acetaminophen 650 mg PO Q4H PRN 11/30/21 11/30/21 allopurinol 200 mg PO DAILY 11/30/21 11/30/21 arginine-vitamin C-vitamin E 4.5 g PO BID 11/30/21 11/30/21 [Arginaid] cyanocobalamin (vitamin B-12) 1,000 mcg PO DAILY 11/30/21 11/30/21 ferrous sulfate 325 mg PO BID 11/30/21 11/30/21 furosemide [Lasix] 20 mg PO DAILY 11/30/21 11/30/21 multivit with min-folic acid 1 tablet PO DAILY 11/30/21 11/30/21 [Adult One Daily Multivitamin] potassium chloride 20 meq PO DAILY 11/30/21 11/30/21 Allergies Allergy/AdvReac Type Severity Reaction Status Date / Time scopolamine Allergy Unknown UNKNOWN Verified 11/05/21 08:20 Tetanus Vaccines and Toxoid Allergy Unknown SWELLING Verified 11/05/21 08:20 Review of Systems Review of Systems: All systems reviewed & are unremarkable except as noted in HPI and below PMFSH Past Medical History Medical History A-fib Anemia CKD (chronic kidney disease) stage 2 Closed right hip fracture Dementia Frequent falls GERD (gastroesophageal reflux disease) Grade II diastolic dysfunction HTN (hypertension) Hyperlipidemia Hypothyroid Non-Hodgkin lymphoma dx in 2009, with chemotherapy and radiation Surgical History Surgical History History of hysterectomy History of knee replacement, total bilateral History of right hip replacement Hx of appendectomy Family History Family History Mother Hypertension Father Acute myocardial infarction Other Diabetes mellitus Family history of arthritis Family history of cardiovascular disease Family history of malignant neoplasm Social History Social History (Updated 11/30/21 @ 15:18 by Ashley Reynoso PA-C) Smoking packs per day: 0.25 Smoking cigarettes per day: 5.0 Smoking status: Former smoker Alcohol intake: never Substance use: never Substance use type: does not use Living arrangements: usp Gender identity (if verbalized by the patient): Female Spiritual care concerns: No Exam Const: General: no acute distress and alert HENMT: Head: normocephalic and atraumatic Face and sinus: sinuses nontender and face symmetric Mouth: Yes Normal oral and palatal mucosa present, Yes lip normal, Yes oropharynx normal and Yes moist mucous membranes Eyes: EOM: EOMs intact bilaterally Resp: Effort & Inspection: normal respiratory effort Auscultation: clear to auscultation bilaterally, rhonchi (bibasilar) an
[2021-11-30] MEDS: ASPIRIN 81 MG CHEWABLE TABLET 324 MG PO (13:36)
[2021-11-30] MEDS: FUROSEMIDE INJ 40 MG/4 ML VIAL IV PUSH (13:37)
[2021-11-30 14:32] LABS: SARS-CoV-2 RNA PCR Negative
--- NOTE | 2021-11-30 14:59 | PM.IMHP ---
H&P: HPI History of Present Illness Date/Time: 11/30/21 14:59 Chief Complaint: sob Narrative: Patient is an 85-year-old woman with a history of stroke, atrial fibrillation on Eliquis, hypertension, dementia, CKD, anemia, HLD, CHF, hypothyroid, admitted for respiratory distress. Pt has a hx of dementia and is A/O x 1-2 which is reportedly her baseline. Most of history is obtained from who is at bedside. Apparently patient was at the retirement today when she was noted to be hypoxic. Pt is unable to give me any history and states she does not remember what happened. She denies sob currently although she is currently on 2L NC. No documented hx of COPD and she does not normally use home oxygen. EMS reports she was in respiratory distress on their arrival. [facility] reported that she was 80% on RA. When EMS arrived they put her on CPAP as it was reported she was breathing 40 times per minute. At this time she is on 2L NC and denies sob. She denies cp. Answers no to all ROS questions but seems confused. Of note, she does have a wound to her RLE which said was surgically debrided 2 weeks ago at [facility] with Dr. Cosby. She apparently had a wound vac in place at the retirement but they took it off prior to sending her to ER today. Still trying to obtain more information and records regarding this. Labs significant for elevated BNP of 4560 and CXR which was read as pneumonia vs pulmonary edema vs atelectasis. First baseline troponin elevated at 0.167. EKG no signficant change from prior. Pt is being admitted as observation status in this setting. Further hx limited secondary to clinical condition. Review of Systems Review of Systems: ROS unobtainable: Yes unobtainable due to mental status [facility] Past Medical History Medical History A-fib Anemia CKD (chronic kidney disease) stage 2 Closed right hip fracture Dementia Frequent falls GERD (gastroesophageal reflux disease) Grade II diastolic dysfunction HTN (hypertension) Hyperlipidemia Hypothyroid Non-Hodgkin lymphoma dx in 2009, with chemotherapy and radiation Surgical History Surgical History History of hysterectomy History of knee replacement, total bilateral History of right hip replacement Hx of appendectomy Family History Family History Mother Hypertension Father Acute myocardial infarction Other Diabetes mellitus Family history of arthritis Family history of cardiovascular disease Family history of malignant neoplasm Social History Social History (Updated 11/30/21 @ 15:18 by Ashley Reynoso PA-C) Smoking packs per day: 0.25 Smoking cigarettes per day: 5.0 Smoking status: Former smoker Tobacco type: cigarettes Smoking end date: 10/06/1959 Alcohol intake: never Substance use: never Substance use type: does not use Living arrangements: retirement Gender identity (if verbalized by the patient): Female Spiritual care concerns: No Meds Home Medications and Allergies Home Medications Medication Instructions Recorded Confirmed Type Eliquis 2.5 mg PO BID 05/26/21 09/27/21 History diltiazem HCl 30 mg PO BID 05/26/21 09/27/21 History ergocalciferol (vitamin D2) 50,000 unit PO USEASDIRECTD 05/26/21 09/27/21 History escitalopram oxalate 10 mg PO DAILY 05/26/21 09/27/21 History levothyroxine 75 mcg PO DAILY 05/26/21 09/27/21 History magnesium oxide 400 mg PO DAILY 05/26/21 09/27/21 History mirtazapine 7.5 mg PO HS 05/26/21 09/27/21 History nystatin [Nystop] 100,000 unit TOPICAL DAILY 05/26/21 09/27/21 History omeprazole 40 mg PO DAILY 05/26/21 09/27/21 History spironolactone 25 mg PO DAILY 05/26/21 09/27/21 History aspirin 81 mg PO QAM 30 Days #30 tablet 05/29/21 09/27/21 Rx atorvastatin 20 mg P
[2021-11-30 16:00] LABS: Troponin I 0.175 ng/mL (0.000-0.034)
--- NOTE | 2021-11-30 16:45 | ADMGEN ---
This patient, Cristal Laureano, was admitted to IMU Room 232-01. Patient/family oriented to hospital policies and general routines including ID bracelet, bed and alarms, visiting hours, pain management, procedures, bathroom and other care routines, personal items, smoking policy, room service/diet, and visiting hours. Information on how to activate the Rapid Response Team has been discussed. Patient/Family are encouraged to report perceived risks to care and to ask questions if they do not understand what they are told or what they should do.
--- NOTE | 2021-11-30 17:10 | PM.CNCAR ---
Assessment and Plan Additional Plan This is an 86-year-old woman who was brought into the hospital because of low oxygen saturation and has some pulmonary congestion on exam and chest x-ray. She appears to have decompensated biventricular heart failure and as mentioned above 6 months ago was found to have critical aortic valve stenosis by echocardiogram. I would agree with plans to diurese her with furosemide at this time. She will be taken off diltiazem in this particular situation. I will follow her with you and hopefully have the opportunity to discuss this with her who apparently is in better condition in terms of dementia. I will presume unless told otherwise that she will not be considered a candidate for aortic valve replacement given her dementia and DNR status. Her troponin elevation is undoubtedly related to critical aortic stenosis and not acute coronary syndrome. Cameron Erickson MD [facility] History of Present Illness History of Present Illness Consult date/time: 11/30/21 17:10 Consult reason: Other (Troponinemia) Reason For Visit: CHF exacerbation/pulmonary edema Narrative: This is an 86-year-old woman I am asked to see this evening in the hospital because of an elevated troponin level. She is being seen at the request of the hospitalist Service. She was apparently sent to the hospital from the skilled care facility where she resides because she was found to a oxygen saturation in the 80s. The patient a does have a history of dementia and is comfortable in the room at this time he can not remember being in any distress and does not really have the ability to tell me why she was brought to the hospital. She does not offer any complaints currently. Apparently she was seen in the emergency room she does have a chest x-ray that was done down there that appears to be moderately congested. She was given some intravenous furosemide and admitted to the IMU. Troponin levels were done which are slightly elevated and flat at 0.16 in 0.17. This prompted consulting me to see her in the office today. She says she is not aware of any cardiac problems in the past. Her chart indicates a previous history of atrial fibrillation. The patient has been in the hospital here several times in the last year the electrocardiograms from those hospitalizations demonstrates sinus rhythm. Presumably because of the atrial fib diagnosis she has been anticoagulated with apixaban. During a previous admission in May of 2021 an echocardiogram was done which demonstrated left ventricular hypertrophy with good systolic function, diastolic noncompliance and critical aortic valve stenosis. The left ventricular function was mentioned in the chart but there was no mention of the aortic valve disease. According to the records she has dementia and is a DNR patient. Her apparently her is in better condition was here earlier it but is not here currently for any further discussion of this. Review of Systems Review of Systems: ROS unobtainable: Yes unobtainable due to mental status PMFSH Past Medical History Medical History A-fib Anemia CKD (chronic kidney disease) stage 2 Closed right hip fracture Dementia Frequent falls GERD (gastroesophageal reflux disease) Grade II diastolic dysfunction HTN (hypertension) Hyperlipidemia Hypothyroid Non-Hodgkin lymphoma dx in 2009, with chemotherapy and radiation Surgical History Surgical History History of hysterectomy History of knee replacement, total bilateral History of right hip replacement Hx of appendectomy Family History Family History Mother Hypertension Father Acute myocardial infarction Other Diabetes mellitus Family history of arthritis Family history of cardiovascular disease Family history of malig
[2021-11-30 19:15] LABS: Troponin I 0.207 ng/mL (0.000-0.034)
--- NOTE | 2021-11-30 20:04 | PCRCNOTE ---
Pt confused stating she believes that the medicine in the UPD treatment (albuterol and atrovent) is going to kill her. pt refused treatment stating the therapist cannot touch her with the nebulizer mask.
[2021-12-01] VITALS (22 sets, daily range): BP systolic 120–142; BP diastolic 60–84; PULSE 85–117; RESP 16–20; TEMP 35.8–37.2; O2SAT 92–99
[2021-12-01] MEDS: APIXABAN 2.5 MG TABLET PO ×3 (01:18→21:30)
[2021-12-01] MEDS: FUROSEMIDE INJ 40 MG/4 ML VIAL IV PUSH ×3 (01:18→21:30)
[2021-12-01] MEDS: IPRATROPIUM BR 0.02% INH SOLN 0.5 MG/2.5 ML VIAL INHALATION ×4 (02:33→19:53)
[2021-12-01] MEDS: ALBUTEROL SULFATE NEB 2.5 MG/0.5 ML INH 5 MG INHALATION ×4 (02:33→19:53)
[2021-12-01 06:49] LABS: Basophils Percent Auto 0.6 % (0.2-1.2); Eosinophils Absolute Auto 0.2 K/mm3 (0-0.3); Eosinophils Percent Auto 4.9 % (0-4.4); Hematocrit 25.6 % (37.0-47.0); Hemoglobin 7.9 g/dL (12.0-15.0); Immature Granulocyte Absolute 0.02 K/mm3 (0.00-0.031); Immature Granulocyte Percent A 0.4 % (0-0.5); Lymphocytes Absolute Auto 0.92 K/mm3 (0.9-3.2); Lymphocytes Percent Auto 18.9 % (18.3-44.2); Mean Corpuscular HGB Conc 30.9 g/dl (32-36); Mean Corpuscular Hemoglobin 27.9 pg (26-34); Mean Corpuscular Volume 90.5 fl (80-100); Mean Platelet Volume 9.9 fl (7.4-10.4); Monocytes Absolute Auto 0.5 K/mm3 (0.1-0.6); Monocytes Percent Auto 9.9 % (2.6-8.5); Neutrophils Absolute Auto 3.2 K/mm3 (1.3-6.7); Neutrophils Percent Auto 65.3 % (45.5-73.1); Platelet Count Result 244 k/mm3 (150-375); Red Blood Count 2.83 M/mm3 (4.2-5.4); Red Cell Distribution Width 20.2 % (11.5-14.5); White Blood Count 4.9 K/mm3 (4.5-10.0)
[2021-12-01 07:09] LABS: Alanine Aminotransferase 10 U/L (4-35); Albumin Level 3.4 g/dL (3.5-5.1); Alkaline Phosphatase 83 U/L (38-126); Anion Gap 7 mmol/L (8-16); Aspartate Amino Transferase 29 U/L (14-36); Bilirubin,Total 0.6 mg/dL (0.2-1.3); Blood Urea Nitrogen 14 mg/dL (7-17); Calcium 8.5 mg/dL (8.4-10.2); Carbon Dioxide 27 mmol/L (22-30); Chloride 105 mmol/L (98-107); Estimated Glomerular Filt Rate 53; Glucose 94 mg/dL (65-110); Potassium 3.1 mmol/L (3.4-5.0); Sodium 139 mmol/L (137-145)
[2021-12-01] MEDS: busPIRone HCL 5 MG TABLET PO ×2 (10:41→21:30)
[2021-12-01] MEDS: busPIRone HCL 2.5 MG TABLET PO ×2 (10:41→21:30)
[2021-12-01] MEDS: MAGNESIUM OXIDE 400 MG TABLET PO (10:42)
[2021-12-01] MEDS: ESCITALOPRAM OXALATE 10 MG TABLET PO (10:42)
[2021-12-01] MEDS: allopurinoL 100 MG TABLET 200 MG PO (10:42)
[2021-12-01] MEDS: PANTOPRAZOLE 40 MG TABLET PO (10:43)
[2021-12-01] MEDS: LEVOTHYROXINE SODIUM 75 MCG TABLET PO (10:43)
[2021-12-01] MEDS: ASPIRIN 81 MG ENTERIC TABLET PO (10:43)
[2021-12-01] MEDS: CYANOCOBALAMIN 1,000 MCG TABLET 1000 MCG PO (10:43)
[2021-12-01] MEDS: FERROUS SULFATE 324 MG TABLET PO ×2 (10:43→16:06)
[2021-12-01] MEDS: THERAPEUTIC MULTIVITAMINS/MINERALS TAB (*BKC) 1 TABLET PO (10:44)
[2021-12-01] MEDS: POTASSIUM CHLORIDE 20 MEQ TABLET.ER 40 MEQ PO (10:45)
--- NOTE | 2021-12-01 13:26 | PM.IMPN ---
Progress Note: A&P Assessment and Plan (1) Acute and chronic respiratory failure with hypoxia: Code(s): J96.21 - Acute and chronic respiratory failure with hypoxia Status: Acute Assessment and Plan: -CXR reads decrease in lung volumes with worsening scattered bilateral lung disease which could represent pneumonia, pulmonary edema, atelectasis or some combination thereof -ABG with P02 of 69.6 -no leukocytosis or fever however will start abx empirically to cover for CAP -covid negative, will check influenza -CTA with cardiomegaly and pulmonary arterial hypertension. No PE. Interval development of moderate right, small to moderate left pleural effusions and adjacent segmental atelectasis. -BNP elevated at 4560, will begin diuresis with IV Lasix -supplemental oxygen as needed, currently she has been weaned off O2 and is on RA (2) CHF exacerbation: Code(s): I50.9 - Heart failure, unspecified Status: Acute Assessment and Plan: -as above -hx of grade II diastolic dysfunction -looks like she was 40 mg PO lasix daily -IV diuresis at 40 IV BID -close monitoring of volume status and renal function -cardiology consulted (3) Pneumonia: Code(s): J18.9 - Pneumonia, unspecified organism Status: Acute Assessment and Plan: -as above -ceftriaxone and azithromycin #2 (4) CVA (cerebral vascular accident): Code(s): I63.9 - Cerebral infarction, unspecified Status: Acute Assessment and Plan: -chronic -continue asa, atorvastatin, Eliquis (5) CKD (chronic kidney disease): Code(s): N18.9 - Chronic kidney disease, unspecified Status: Acute Assessment and Plan: -baseline appears to be around 1.3 -creat today is 1.0 -continue monitoring especially while diuresing (6) A-fib: Code(s): I48.91 - Unspecified atrial fibrillation Status: Acute Assessment and Plan: -chronic -continue eliquis (7) Dementia: Code(s): F03.90 - Unspecified dementia without behavioral disturbance Status: Acute Assessment and Plan: -chronic -per she is currently at her baseline (8) Elevated troponin: Code(s): R77.8 - Other specified abnormalities of plasma proteins Status: Acute Assessment and Plan: -EKG no significant change compared to prior -pt has no chest pain -serial troponins elevated at 0.167. 0.175, 0.207 -seen by cardiology who feels troponin is likely elevated due to critical aortic stenosis and not acute coronary syndrome (9) Wound of lower extremity: Code(s): S81.809A - Unspecified open wound, unspecified lower leg, initial encounter Status: Acute Assessment and Plan: -apparently underwent surgical debridement at [facility] 2 weeks ago -[facility] vac [facility] but they took it off prior to sending her to the ER -attempting to obtain further records -currently has xeroform dressing -wound care consult (10) Hypokalemia: Code(s): E87.6 - Hypokalemia Status: Acute Assessment and Plan: -mild -monitor and replace as indicated (11) Anemia: Code(s): D64.9 - Anemia, unspecified Status: Acute Assessment and Plan: -chronic -appears stable near her baseline -continue monitoring Subjective Date/time seen: 12/01/21 08:00 Interval history: Patient is an 85-year-old woman with a history of stroke, atrial fibrillation on Eliquis, hypertension, dementia, CKD, anemia, HLD, CHF, hypothyroid, admitted for respiratory distress. Pt is A/Ox1 today. Has no complaints. Denies cp/sob. She is on room air. Further hx limited secondary to dementia. Review of Systems Review of Systems: ROS unobtainable: Yes unobtainable due to mental status Exam Narrative: General: No acute distress, non toxic appearing, elderly, obese Eyes: PERRL, no scleral icterus
[2021-12-01 13:53] LABS: Add Urine Microscopic? YES; Appearance Urine Clear (Clear); Bilirubin Urine Negative (Negative); Blood Urine 2+ (Negative); Color Urine Straw (Yellow); Glucose Urine UA Negative (Negative); Ketones Urine Negative (Negative); Leukocyte Esterase Ur Negative LEU/UL (Negative); Nitrate Urine Negative (Negative); Protein Urine Negative (Negative); RBC Urine 0-2 /hpf (0-2); Specific Grav Ur 1.014 (1.001-1.035); Squamous Epithelial Cell Urine Rare /hpf (Few); Urobilinogen Urine Negative mg/dL (<2.0); WBC Urine 0-3 /hpf
[2021-12-01 16:30] LABS: Influenza Control Positive
[2021-12-01] MEDS: MIRTAZAPINE 15 MG TABLET PO (21:30)
[2021-12-01] MEDS: traMADol HCL (*CRX) 50 MG TABLET PO (21:31)
[2021-12-02] VITALS (16 sets, daily range): BP systolic 111–149; BP diastolic 61–83; PULSE 67–111; RESP 15–22; TEMP 36.4–36.8; O2SAT 95–100
[2021-12-02 05:14] LABS: Basophils Percent Auto 0.8 % (0.2-1.2); Eosinophils Absolute Auto 0.3 K/mm3 (0-0.3); Hematocrit 26.6 % (37.0-47.0); Hemoglobin 8.2 g/dL (12.0-15.0); Immature Granulocyte Absolute 0.02 K/mm3 (0.00-0.031); Immature Granulocyte Percent A 0.4 % (0-0.5); Lymphocytes Absolute Auto 0.71 K/mm3 (0.9-3.2); Lymphocytes Percent Auto 13.8 % (18.3-44.2); Mean Corpuscular HGB Conc 30.8 g/dl (32-36); Mean Corpuscular Hemoglobin 27.9 pg (26-34); Mean Corpuscular Volume 90.5 fl (80-100); Mean Platelet Volume 10.1 fl (7.4-10.4); Monocytes Absolute Auto 0.7 K/mm3 (0.1-0.6); Monocytes Percent Auto 13.6 % (2.6-8.5); Neutrophils Absolute Auto 3.4 K/mm3 (1.3-6.7); Neutrophils Percent Auto 65.4 % (45.5-73.1); Platelet Count Result 264 k/mm3 (150-375); Red Blood Count 2.94 M/mm3 (4.2-5.4); Red Cell Distribution Width 20.3 % (11.5-14.5); White Blood Count 5.2 K/mm3 (4.5-10.0)
[2021-12-02 05:32] LABS: Alanine Aminotransferase 10 U/L (4-35); Albumin Level 3.4 g/dL (3.5-5.1); Alkaline Phosphatase 80 U/L (38-126); Anion Gap 6 mmol/L (8-16); Aspartate Amino Transferase 33 U/L (14-36); Bilirubin,Total 0.5 mg/dL (0.2-1.3); Blood Urea Nitrogen 11 mg/dL (7-17); Calcium 8.3 mg/dL (8.4-10.2); Carbon Dioxide 31 mmol/L (22-30); Chloride 101 mmol/L (98-107); Estimated Glomerular Filt Rate 53; Glucose 90 mg/dL (65-110); Potassium 2.6 mmol/L (3.4-5.0); Sodium 138 mmol/L (137-145)
[2021-12-02 06:42] LABS: Magnesium 1.6 mg/dL (1.6-2.3)
[2021-12-02] MEDS: MAGNESIUM SULF 4 GM/WATER100ML 4 GM/100 ML BAG IVPB (07:08)
[2021-12-02] MEDS: POTASSIUM CHLORIDE 20 MEQ TABLET 40 MEQ PO (07:09)
[2021-12-02] MEDS: LEVOTHYROXINE SODIUM 75 MCG TABLET PO (07:09)
[2021-12-02] MEDS: IPRATROPIUM BR 0.02% INH SOLN 0.5 MG/2.5 ML VIAL INHALATION ×3 (08:09→20:45)
[2021-12-02] MEDS: ALBUTEROL SULFATE NEB 2.5 MG/0.5 ML INH 5 MG INHALATION ×3 (08:09→20:44)
[2021-12-02] MEDS: POTASSIUM CHLORIDE INJ 40 MEQ in SODIUM CHLORIDE 0.9% IV 500 ML 130 MEQ IVPB (08:59)
[2021-12-02] MEDS: busPIRone HCL 2.5 MG TABLET PO ×2 (09:01→21:45)
[2021-12-02] MEDS: POTASSIUM CHLORIDE 20 MEQ TABLET.ER 40 MEQ PO (09:01)
[2021-12-02] MEDS: ASPIRIN 81 MG ENTERIC TABLET PO (09:01)
[2021-12-02] MEDS: busPIRone HCL 5 MG TABLET PO ×2 (09:01→21:45)
[2021-12-02] MEDS: allopurinoL 100 MG TABLET 200 MG PO (09:01)
[2021-12-02] MEDS: APIXABAN 2.5 MG TABLET PO ×2 (09:02→21:42)
[2021-12-02] MEDS: ESCITALOPRAM OXALATE 10 MG TABLET PO (09:02)
[2021-12-02] MEDS: CYANOCOBALAMIN 1,000 MCG TABLET 1000 MCG PO (09:02)
[2021-12-02] MEDS: FERROUS SULFATE 324 MG TABLET PO ×2 (09:02→18:17)
[2021-12-02] MEDS: FUROSEMIDE INJ 40 MG/4 ML VIAL IV PUSH ×2 (09:03→21:38)
[2021-12-02] MEDS: MAGNESIUM OXIDE 400 MG TABLET PO (09:03)
[2021-12-02] MEDS: THERAPEUTIC MULTIVITAMINS/MINERALS TAB (*BKC) 1 TABLET PO (09:03)
[2021-12-02] MEDS: PANTOPRAZOLE 40 MG TABLET PO (09:03)
--- NOTE | 2021-12-02 10:26 | PM.PNCARD ---
Progress Note: A&P Additional Plan 86-year-old lady with: Critical aortic valve stenosis which undoubtedly is the reason for her elevated troponin level. Given her advanced age and DNR status at this time she is not candidate for aortic valve replacement. That is being reconsidered please let me know otherwise I will sign off of her case at this time since we would not intend to pursue further workup of her valvular heart disease. Cameron Erickson MD [facility] Subjective Date/time seen: Date of service: 12/02/21 10:26 Interval history: Follow-up visit in this 86-year-old lady with: Elevated troponin level in the setting of critical aortic valve stenosis. Patient is resting comfortably in bed and does eyes any active cardiovascular complaints. Exam Const: General: comfortable and no acute distress Other: Pleasant elderly lady resting head of the bed mildly elevated otherwise note complaints or distress HENMT: Mouth: Yes moist mucous membranes Eyes: Sclera: sclerae normal Neck: Neck: supple and no JVD Other: Delayed carotid upstrokes Resp: Effort & Inspection: normal respiratory effort Cardio: Rate: regular rate Rhythm: regular rhythm Other: High-pitched late peaking murmur of aortic valve stenosis GI: GI Palp: Yes Soft to palpation Auscultation: normal bowel sounds Skin: General skin exam: normal color Neuro: Other: Oriented x1 Objective Data Vital Signs Vital Signs: Vital Signs - 24 hr 12/01/21 12:00 12/01/21 12:53 12/01/21 13:01 Temperature 36.9 C Pulse Rate 110 H 110 H 105 H Respiratory Rate 20 20 18 Blood Pressure 127/71 Pulse Oximetry 94 12/01/21 14:00 12/01/21 16:00 12/01/21 18:00 Temperature 36.8 C Pulse Rate 107 H 107 H 101 H Respiratory Rate 16 Blood Pressure 138/82 Pulse Oximetry 94 12/01/21 19:56 12/01/21 19:57 12/01/21 20:00 Temperature 36.6 C Pulse Rate 106 H 117 H Respiratory Rate 18 20 Blood Pressure 142/84 H Pulse Oximetry 95 99 12/01/21 22:00 12/02/21 00:00 12/02/21 02:00 Temperature 36.4 C L Pulse Rate 100 111 H 90 Respiratory Rate 22 H Blood Pressure 134/83 Pulse Oximetry 95 12/02/21 04:00 12/02/21 06:00 12/02/21 08:00 Temperature 36.7 C 36.4 C L Pulse Rate 84 72 80 Respiratory Rate 20 20 Blood Pressure 149/74 H 137/63 Pulse Oximetry 100 100 12/02/21 08:08 12/02/21 08:09 12/02/21 08:17 Temperature Pulse Rate 78 67 70 Respiratory Rate 20 20 20 Blood Pressure Pulse Oximetry 97 12/02/21 10:00 Temperature Pulse Rate 95 Respiratory Rate Blood Pressure Pulse Oximetry Intake/Output Intake/Output: Intake & Output 11/29/21 11/30/21 12/01/21 12/02/21 23:59 23:59 23:59 23:59 Intake Total 592 1590 260 Output Total 1500 160 500 Balance -908 1430 -240 Meds/Results Medications: Active Medications Generic Name Dose Route Start Last Admin Trade Name Freq PRN Reason Stop Dose Admin Acetaminophen 650 mg 12/01/21 08:16 Acetaminophen 325 Mg Tablet PO Q4H PRN Pain 1-3 Albuterol 5 mg 11/30/21 20:00 12/02/21 08:09 Albuterol Sulfate Neb 2.5 Mg/0.5 Ml Inh INHALATION 5 mg Q6HRT CAMILA Administration Allopurinol 200 mg 12/01/21 09:00 12/02/21 09:01 Allopurinol 100 Mg Tablet PO 200 mg DAILY CAMILA Administration Apixaban 2.5 mg 11/30/21 21:00 12/02/21 09:02 Apixaban 2.5 Mg Tablet PO 2.5 mg Q12HR CAMILA Administration Aspirin 81 mg 12/01/21 09:00 12/02/21 09:01 Aspirin 81 Mg Enteric Tablet PO 81 mg QAM CAMILA Administration Buspirone HCl 5 mg 12/01/21 09:00 12/02/21 09:01 Buspirone Hcl 5 Mg Tablet PO 5 mg Q12HR CAMILA Administration Buspirone HCl 2.5 mg 12/01/21 09:00 12/02/21 09:01 Buspirone Hcl 2.5 Mg Tablet PO 2.5 mg Q12HR CAMILA Administration Cyanocobalamin 1,000 mcg 12/01/21 09:00 12/02/21 09:02 Cyanocobalamin 1,000 Mcg Tablet PO 1,000 mcg DAILY CAMILA Administration Ergocalciferol 50,000 unit 12/03/21
[2021-12-02 13:54] LABS: Potassium 4.5 mmol/L (3.4-5.0)
--- NOTE | 2021-12-02 15:03 | PM.IMPN ---
Progress Note: A&P Assessment and Plan (1) Acute and chronic respiratory failure with hypoxia: Code(s): J96.21 - Acute and chronic respiratory failure with hypoxia Status: Acute Assessment and Plan: -CXR reads decrease in lung volumes with worsening scattered bilateral lung disease which could represent pneumonia, pulmonary edema, atelectasis or some combination thereof -ABG with P02 of 69.6 -continue ceftriaxone and azithromycin for community-acquired pneumonia coverage -covid negative, influenza negative -CTA with cardiomegaly and pulmonary arterial hypertension. No PE. Interval development of moderate right, small to moderate left pleural effusions and adjacent segmental atelectasis. -BNP elevated at 4560. Continue diuresis with IV Lasix 40 mg b.i.d. -initially required 2 L per nasal cannula, has now been weaned to room air and O2 sats are 100% (2) CHF exacerbation: Code(s): I50.9 - Heart failure, unspecified Status: Acute Assessment and Plan: As above -hx of grade II diastolic dysfunction -IV diuresis at 40 IV BID -close monitoring of volume status and renal function -appreciate cardiology consultation (3) Pneumonia: Code(s): J18.9 - Pneumonia, unspecified organism Status: Acute Assessment and Plan: -as above -ceftriaxone and azithromycin #3 -check Legionella pneumococcal urinary antigens -supportive care. Bronchodilators and expectorants as needed (4) CVA (cerebral vascular accident): Code(s): I63.9 - Cerebral infarction, unspecified Status: Acute Assessment and Plan: -chronic -continue asa, atorvastatin, Eliquis (5) CKD (chronic kidney disease): Code(s): N18.9 - Chronic kidney disease, unspecified Status: Acute Assessment and Plan: -baseline appears to be around 1.3 -creat today is 1.0 -continue monitoring especially while diuresing (6) A-fib: Code(s): I48.91 - Unspecified atrial fibrillation Status: Acute Assessment and Plan: -chronic -continue eliquis (7) Dementia: Code(s): F03.90 - Unspecified dementia without behavioral disturbance Status: Acute Assessment and Plan: -chronic -A&O to self only -per she is currently at her baseline (8) Elevated troponin: Code(s): R77.8 - Other specified abnormalities of plasma proteins Status: Acute Assessment and Plan: -EKG no significant change compared to prior -she is asymptomatic -serial troponins elevated at 0.167. 0.175, 0.207 -seen by cardiology who feels troponin is likely elevated due to critical aortic stenosis and not acute coronary syndrome. -discussed with patient and , do not wish to consider aortic valve replacement given her advanced age and DNR status (9) Wound of lower extremity: Code(s): S81.809A - Unspecified open wound, unspecified lower leg, initial encounter Status: Acute Assessment and Plan: -apparently underwent surgical debridement at [facility] 2 weeks ago -had wound vac on at [facility] but they took it off prior to sending her to the ER -attempting to obtain further records -currently has xeroform dressing -wound care consult, recommendations are appreciated (10) Hypokalemia: Code(s): E87.6 - Hypokalemia Status: Acute Assessment and Plan: Potassium is 2.6 today -Received 40 mEq IV KCl and 40 mEq PO KCl -Continue to monitor BMP (11) Anemia: Code(s): D64.9 - Anemia, unspecified Status: Acute Assessment and Plan: -chronic -appears stable near her baseline -continue monitoring Additional Plan Patient is hemodynamically stable and will downgrade to medical floor Subjective Date/time seen: 12/02/21 15:03 Interval history: Date of service: 12/02/2021 Cristal Laureano is an 86-year-old female with a history of atrial fibrillat
--- NOTE | 2021-12-02 16:52 | PC.NURSE ---
This patient, Cristal Laureano, was transferred to [[facility] ] on 12/02/21 at 1652. Personal belongings sent with patient. Report given to [ Ernestina]. Appropriate documentation sent with patient.
[2021-12-02 22:09] LABS: IFOB Positive Control Positive; Immunochemical Fecal Occult Bl Negative (N)
[2021-12-02] MEDS: MIRTAZAPINE 15 MG TABLET PO (22:42)
[2021-12-03] VITALS (8 sets, daily range): BP systolic 114; BP diastolic 87; PULSE 94–103; RESP 16–18; TEMP 36.6; O2SAT 97
[2021-12-03] MEDS: ALBUTEROL SULFATE NEB 2.5 MG/0.5 ML INH 5 MG INHALATION ×2 (02:33→08:14)
[2021-12-03] MEDS: IPRATROPIUM BR 0.02% INH SOLN 0.5 MG/2.5 ML VIAL INHALATION ×2 (02:33→08:14)
[2021-12-03 05:39] LABS: Hematocrit 27.6 % (37.0-47.0); Hemoglobin 8.6 g/dL (12.0-15.0); Mean Corpuscular HGB Conc 31.2 g/dl (32-36); Mean Corpuscular Volume 89.9 fl (80-100); Mean Platelet Volume 10.6 fl (7.4-10.4); Platelet Count Result 294 k/mm3 (150-375); Red Blood Count 3.07 M/mm3 (4.2-5.4); Red Cell Distribution Width 20.4 % (11.5-14.5); White Blood Count 5.9 K/mm3 (4.5-10.0)
[2021-12-03 05:53] LABS: Anion Gap 6 mmol/L (8-16); Blood Urea Nitrogen 11 mg/dL (7-17); Calcium 8.4 mg/dL (8.4-10.2); Carbon Dioxide 32 mmol/L (22-30); Chloride 101 mmol/L (98-107); Estimated Glomerular Filt Rate 47; Glucose 89 mg/dL (65-110); Potassium 3.3 mmol/L (3.4-5.0); Sodium 139 mmol/L (137-145)
[2021-12-03] MEDS: LEVOTHYROXINE SODIUM 75 MCG TABLET PO (06:23)
[2021-12-03] MEDS: DOXYCYCLINE HYCLATE 100 MG TABLET PO (08:25)
[2021-12-03] MEDS: FUROSEMIDE INJ 40 MG/4 ML VIAL IV PUSH (08:26)
[2021-12-03] MEDS: ERGOCALCIFEROL 50,000 UNIT CAPSULE 50000 UNITS PO (08:26)
[2021-12-03] MEDS: CYANOCOBALAMIN 1,000 MCG TABLET 1000 MCG PO (08:26)
[2021-12-03] MEDS: PANTOPRAZOLE 40 MG TABLET PO (08:26)
[2021-12-03] MEDS: FERROUS SULFATE 324 MG TABLET PO (08:26)
[2021-12-03] MEDS: ESCITALOPRAM OXALATE 10 MG TABLET PO (08:26)
[2021-12-03] MEDS: POTASSIUM CHLORIDE 20 MEQ TABLET.ER 40 MEQ PO (08:26)
[2021-12-03] MEDS: busPIRone HCL 2.5 MG TABLET PO (08:26)
[2021-12-03] MEDS: allopurinoL 100 MG TABLET 200 MG PO (08:26)
[2021-12-03] MEDS: MAGNESIUM OXIDE 400 MG TABLET PO (08:26)
[2021-12-03] MEDS: APIXABAN 2.5 MG TABLET PO (08:26)
[2021-12-03] MEDS: busPIRone HCL 5 MG TABLET PO (08:26)
[2021-12-03] MEDS: THERAPEUTIC MULTIVITAMINS/MINERALS TAB (*BKC) 1 TABLET PO (08:26)
[2021-12-03] MEDS: ASPIRIN 81 MG ENTERIC TABLET PO (08:26)
--- NOTE | 2021-12-03 11:35 | PM.DS ---
DS: Admitting Diagnosis Discharge Date 12/03/21 Admitting Diagnosis Acute on chronic respiratory failure with hypoxia CHF exacerbation Pneumonia CVA CKD AFib Dementia Elevated troponin Wound to lower extremity DS: Discharge Diagnosis Discharge Diagnosis (1) Acute and chronic respiratory failure with hypoxia: Code(s): J96.21 - Acute and chronic respiratory failure with hypoxia Status: Acute Assessment and Plan: -CXR reads decrease in lung volumes with worsening scattered bilateral lung disease which could represent pneumonia, pulmonary edema, atelectasis or some combination thereof -ABG with P02 of 69.6 -continue ceftriaxone and azithromycin for community-acquired pneumonia coverage -covid negative, influenza negative -CTA with cardiomegaly and pulmonary arterial hypertension. No PE. Interval development of moderate right, small to moderate left pleural effusions and adjacent segmental atelectasis. -BNP elevated at 4560. Continue diuresis with oral Lasix 40 mg daily, follow up with cardiology -initially required 2 L per nasal cannula, has now been weaned to room air and O2 sats are 100% (2) CHF exacerbation: Code(s): I50.9 - Heart failure, unspecified Status: Acute Assessment and Plan: As above -hx of grade II diastolic dysfunction -40mg lasix daily -close monitoring of volume status and renal function -appreciate cardiology consultation (3) Pneumonia: Code(s): J18.9 - Pneumonia, unspecified organism Status: Acute Assessment and Plan: abx transitioned to doxy prior to discharge (4) CVA (cerebral vascular accident): Code(s): I63.9 - Cerebral infarction, unspecified Status: Acute Assessment and Plan: -chronic -continue asa, atorvastatin, Eliquis (5) CKD (chronic kidney disease): Code(s): N18.9 - Chronic kidney disease, unspecified Status: Acute Assessment and Plan: -baseline appears to be around 1.3 -creat today is 1.0 -continue monitoring especially while diuresing (6) A-fib: Code(s): I48.91 - Unspecified atrial fibrillation Status: Acute Assessment and Plan: -chronic -continue eliquis (7) Dementia: Code(s): F03.90 - Unspecified dementia without behavioral disturbance Status: Acute Assessment and Plan: -chronic -A&O to self only -per she is currently at her baseline (8) Elevated troponin: Code(s): R77.8 - Other specified abnormalities of plasma proteins Status: Acute Assessment and Plan: -EKG no significant change compared to prior -she is asymptomatic -serial troponins elevated at 0.167. 0.175, 0.207 -seen by cardiology who feels troponin is likely elevated due to critical aortic stenosis and not acute coronary syndrome. -discussed with patient and , do not wish to consider aortic valve replacement given her advanced age and DNR status (9) Wound of lower extremity: Code(s): S81.809A - Unspecified open wound, unspecified lower leg, initial encounter Status: Acute Assessment and Plan: -apparently underwent surgical debridement at [facility] 2 weeks ago -had wound vac on at [facility] but they took it off prior to sending her to the ER -attempting to obtain further records -currently has xeroform dressing -wound care consult, recommendations are appreciated (10) Hypokalemia: Code(s): E87.6 - Hypokalemia Status: Acute Assessment and Plan: Potassium is 2.6 today -Received 40 mEq IV KCl and 40 mEq PO KCl -Continue to monitor BMP (11) Anemia: Code(s): D64.9 - Anemia, unspecified Status: Acute Assessment and Plan: -chronic -appears stable near her baseline -continue monitoring DS: Summary Hospital Course Reason for hospitalization: CHF exacerbation Acute hypoxic resp. failure Hospital
[2021-12-03] MEDS: SILVERGEL (ELTA) 45 ML 1 APPLIC TOPICAL (12:54)
== END 2021-12-03 13:15 | DRG 291 ==
LOC: ANHED 12:18 → ANHIMU 15:19 → ANH2MED 12-03 10:13 → ANHIMU 12-04 11:38
PROVIDERS: Internal Medicine; Physician Assistant; Admitting Provider Internal Medicine; Emergency Provider General Practice; PCP Family Medicine; Visit Provider Nurse Practitioner Family
DX: I13.0 Hypertensive heart and chronic kidney disease with heart failure and stage 1 through stage 4 chronic kidney disease, or unspecified chronic kidney disease (principal); J96.21 Acute and chronic respiratory failure with hypoxia; J18.9 Pneumonia, unspecified organism; I48.20 Chronic atrial fibrillation, unspecified; I50.9 Heart failure, unspecified; F03.90 Unspecified dementia, unspecified severity, without behavioral disturbance, psychotic disturbance, mood disturbance, and anxiety; R77.8 Other specified abnormalities of plasma proteins; S81.809A Unspecified open wound, unspecified lower leg, initial encounter; E03.9 Hypothyroidism, unspecified; N18.2 Chronic kidney disease, stage 2 (mild); Z85.72 Personal history of non-Hodgkin lymphomas; K21.9 Gastro-esophageal reflux disease without esophagitis; Z91.81 History of falling; Z92.21 Personal history of antineoplastic chemotherapy; Z92.3 Personal history of irradiation; Z79.01 Long term (current) use of anticoagulants; Z79.82 Long term (current) use of aspirin; Z79.891 Long term (current) use of opiate analgesic; Z79.899 Other long term (current) drug therapy; Z88.8 Allergy status to other drugs, medicaments and biological substances; Z20.822 Contact with and (suspected) exposure to COVID-19; I35.0 Nonrheumatic aortic (valve) stenosis; Z66 Do not resuscitate; D64.9 Anemia, unspecified; E87.6 Hypokalemia; I27.20 Pulmonary hypertension, unspecified
CPT/HCPCS: 36415; 36600; 71045; 71275; 74177; 80048; 80053; 81001; 82274; 82375; 82805; 83050; 83735; 83880; 84132; 84484; 85025; 85027; 85610; 85730; 87804; 93005; 93306; 94640; 96365; 96366; 96368; 96374; 97161; 99285; A9270; C9803; G0378; J0456; J0696; J1940; J3475; J3480; J7040; Q9967; U0003; U0005

== ENCOUNTER 2021-12-30 08:48 | Inpatient (IN) | payer MEDICARE, SELFPAY ==
[2021-12-30] VITALS (45 sets, daily range): BP systolic 103–151; BP diastolic 54–121; PULSE 82–124; RESP 14–46; TEMP 35.8–36.9; O2SAT 97–100; BMI 30.2
--- NOTE | ~2021-12-30 | XR_ITS ---
EXAMINATION: XR chest 1V portable DATE: 12/30/2021 09:17 INDICATION: Shortness of breath TECHNIQUE: frontal and lateral views of the chest were obtained. COMPARISON: Chest radiograph dated 11/30/[address] dated 12/01/2021 FINDINGS: Bilateral airspace opacities most prominent in the right mid to upper and left lower lung zones and t o lesser degree in the right lower lung zone. Small left pleural effusion. No pneumothorax. Cardiomeg anushka. Chronic fracture deformity at the right humeral head with secondary anterosuperior glenohumeral subluxation and osteoarthritis. Old bilateral rib fractures. IMPRESSION: 1. Patchy bilateral airspace opacities consistent with atelectasis and/or pneumonia. 2. Small left pleural effusion. 3. Cardiomegaly. Reviewed, dictated and finalized at location A. IMPRESSION: 1. Patchy bilateral airspace opacities consistent with atelectasis and/or pneum onia. 2. Small left pleural effusion. 3. Cardiomegaly.
--- NOTE | 2021-12-30 08:53 | ED.GENADULT ---
HPI - General Adult General Chief complaint: Shortness of Breath/Dyspnea Stated complaint: resp distress Time Seen by Provider: 12/30/21 08:52 Source: patient History of Present Illness HPI narrative: 86-year-old female with history of congestive heart failure presented to the emergency department from a local custodial for worsening shortness of breath. alf states that approximately 8 AM patient was having increased difficulty breathing and crackles on respiration. alf treated the patient with an albuterol nebulizer but patient had no significant improvement. EMS was called. Upon arrival EMS did place the patient on CPAP. Patient was transition to BiPAP upon arrival to the emergency department. Initial settings were 14/8 and she was saturating well with an FiO2 of 70%. Patient did have a recent hospitalization for CHF. Patient does have history of aortic stenosis. Related Data Home Medications Medication Instructions Recorded Confirmed ergocalciferol (vitamin D2) 50,000 unit PO USEASDIRECTD 05/26/21 12/30/21 escitalopram oxalate 10 mg PO DAILY 05/26/21 12/30/21 levothyroxine 75 mcg PO DAILY 05/26/21 12/30/21 mirtazapine 15 mg PO HS 05/26/21 12/30/21 omeprazole 40 mg PO DAILY 05/26/21 12/30/21 buspirone 7.5 mg PO BID 09/27/21 12/30/21 Arginaid 4.5 g PO BID 11/30/21 12/30/21 acetaminophen 650 mg PO Q4H PRN 11/30/21 12/30/21 allopurinol 200 mg PO DAILY 11/30/21 12/30/21 cyanocobalamin (vitamin B-12) 1,000 mcg PO DAILY 11/30/21 12/30/21 ferrous sulfate 325 mg PO BID 11/30/21 12/30/21 furosemide [Lasix] 20 mg PO BID 11/30/21 12/30/21 alprazolam 0.5 mg PO DAILY 12/30/21 12/30/21 Allergies Allergy/AdvReac Type Severity Reaction Status Date / Time scopolamine Allergy Unknown UNKNOWN Verified 11/05/21 08:20 Tetanus Vaccines and Toxoid Allergy Unknown SWELLING Verified 11/05/21 08:20 Review of Systems Review of Systems: CONSTITUTIONAL: Denies fever, chills, or sweats. EYES: Denies visual changes, redness, or discharge. ENT: Denies rhinorrhea, congestion, sore throat, or otalgia. CARDIOVASCULAR: Lower extremity edema bilaterally RESPIRATORY: Worsening shortness of breath GASTROINTESTINAL: Denies abdominal pain, nausea, vomiting, or diarrhea. GENITOURINARY: Denies dysuria or hematuria. SKIN: Wound on right lateral leg, dressing had been applied at custodial MUSCULOSKELETAL: Denies back pain, joint pain, or myalgia. NEUROLOGIC: Denies headache, numbness, or weakness. COUNTS INCLUDE 234 BEDS AT THE [facility] Past Medical History Medical History (Updated 12/30/21 @ 15:12 by Hansa Johnston PA-C) Aortic stenosis Severe aortic valve stenosis with a peak velocity of 461 cm/s, mean gradient of 50 mmHg, and aortic valve area of 0.7 cm2. Chronic anemia Chronic kidney disease, stage 3 Congestive heart failure Moderate concentric increased left ventricular wall thickness. Normal LV systolic function with an EF estimated at 60-65%. Left atrial chamber dimension is severely enlarged. There is severe aortic valve stenosis with a peak velocity of 461 cm/s, mean gradient of 50 mmHg, and aortic valve area of 0.7 cm2. Dementia Frequent falls Gastroesophageal reflux disease Grade II diastolic dysfunction Hyperlipidemia Hypertension Hypothyroidism Non-Hodgkin lymphoma (2009) Status post chemoradiation. Paroxysmal atrial fibrillation Pulmonary hypertension Severe on echocardiogram in December 2017 with a RVSP of 70 mmHg. Surgical History Surgical History (Updated 12/30/21 @ 14:43 by Hansa Johnston PA-C) History of appendectomy History of bilateral knee replacement History of hysterectomy History of right hip replacement Following right hip fracture. Family History Family History Mother Hypertension Father Acute myocardial infarction Other Diabetes mellitus Family history of arthritis Family history of cardiovascular disease Family history of malignant neoplasm
[2021-12-30 09:03] LABS: Alveolar/Arterial O2 Gradient 263.5 mmHg; Base Excess ABG 5.5 mEq/l (+/-2.0); Fractional Inspired Oxygen 75 %; HCO3 ABG 30.9 mEq/l (22.0-26.0); Oxygen Content ABG 14.1 %vol (16.0-22.0); Oxygen Saturation ABG 99.5 % (95.0-100.0); Oxyhemoglobin 98.2 % THb (90.0-100.0); PCO2 ABG 49.6 mmHg (35.0-45.0); PO2 ABG 218.6 mmHg (80.0-100.0); PO2 FiO2 Ratio Arterial Blood 2.91 %; Total Hemoglobin 9.8 g/dL (12.0-18.0); pH ABG 7.413 (7.350-7.450)
[2021-12-30 09:04] LABS: Device NON-INVASIVE VENT; Modified Allen's Test Pass; Non-Invasive Expiratory Pressure 6 CMH2O; Non-Invasive Inspiratory Pressure 12 CMH2O; Non-Invasive Vent Rate 4 /MIN; Site Drawn RIGHT RADIAL
[2021-12-30 09:37] LABS: Basophils Absolute Auto 0.1 K/mm3 (0.0-0.1); Basophils Percent Auto 0.6 % (0.2-1.2); Eosinophils Absolute Auto 0.1 K/mm3 (0-0.3); Eosinophils Percent Auto 1.3 % (0-4.4); Hematocrit 27.5 % (37.0-47.0); Hemoglobin 8.8 g/dL (12.0-15.0); Immature Granulocyte Absolute 0.03 K/mm3 (0.00-0.031); Immature Granulocyte Percent A 0.3 % (0-0.5); Lymphocytes Absolute Auto 0.46 K/mm3 (0.9-3.2); Lymphocytes Percent Auto 5.2 % (18.3-44.2); Mean Corpuscular Volume 93.9 fl (80-100); Mean Platelet Volume 10.3 fl (7.4-10.4); Monocytes Absolute Auto 0.7 K/mm3 (0.1-0.6); Monocytes Percent Auto 7.5 % (2.6-8.5); Neutrophils Absolute Auto 7.6 K/mm3 (1.3-6.7); Neutrophils Percent Auto 85.1 % (45.5-73.1); Platelet Count Result 210 k/mm3 (150-375); Red Blood Count 2.93 M/mm3 (4.2-5.4); Red Cell Distribution Width 17.8 % (11.5-14.5); White Blood Count 8.9 K/mm3 (4.5-10.0)
[2021-12-30 09:47] LABS: Alanine Aminotransferase 13 U/L (4-35); Albumin Level 3.7 g/dL (3.5-5.1); Alkaline Phosphatase 126 U/L (38-126); Anion Gap 7 mmol/L (8-16); Aspartate Amino Transferase 39 U/L (14-36); Blood Urea Nitrogen 25 mg/dL (7-17); Calcium 8.8 mg/dL (8.4-10.2); Carbon Dioxide 33 mmol/L (22-30); Chloride 97 mmol/L (98-107); Estimated CRCL calculation 38 ml/min; Estimated Glomerular Filt Rate 47; Glucose 141 mg/dL (65-110); Potassium 3.6 mmol/L (3.4-5.0); Sodium 137 mmol/L (137-145)
[2021-12-30 09:55] LABS: NT Pro B Type Natriuretic Pept 5150 pg/mL (5-100)
[2021-12-30 10:14] LABS: Influenza A QL RT-PCR Negative (Negative); Influenza B QL RT-PCR Negative (Negative); SARS-CoV-2 RNA PCR Negative
--- NOTE | 2021-12-30 10:27 | ECG_ITS ---
Measurements Intervals [place]inkley Rate: 105 P: 75 AR: 203 QRS: -46 QRSD: 106 T: 58 QT: 361 QTc: 477 Interpretive Statements SINUS TACHYCARDIA LEFT ANTERIOR FASCICULAR BLOCK [QRS AXIS <= -45, QR IN I, RS IN II] LEFT VENTRICULAR HYPERTROPHY AND ST-T CHANGE [VOLTAGE CRITERIA PLUS ST/T ABNORMALITY] COMPARED TO ECG 11/30/2021 11:20:20 NO SIGNIFICANT CHANGE Electronically Signed On 12-30-2021 20:45:34 CDT by Cameron Erickson M.D.
[2021-12-30] MEDS: FUROSEMIDE INJ 40 MG/4 ML VIAL IV PUSH (10:35)
[2021-12-30 10:45] LABS: Add Urine Microscopic? YES; Appearance Urine Clear (Clear); Bacteria Urine Trace /hpf; Bilirubin Urine Negative (Negative); Blood Urine Negative (Negative); Color Urine Yellow (Yellow); Glucose Urine UA Negative (Negative); Ketones Urine Negative (Negative); Leukocyte Esterase Ur Negative LEU/UL (Negative); Nitrate Urine Negative (Negative); Protein Urine Negative (Negative); Specific Grav Ur 1.009 (1.001-1.035); Urobilinogen Urine Negative mg/dL (<2.0); WBC Urine 0-3 /hpf
--- NOTE | 2021-12-30 12:45 | PM.IMHP ---
H&P: HPI History of Present Illness Date/Time: 12/30/21 12:45 Chief Complaint: Shortness of breath. Narrative: This is a pleasant 86-year-old female with congestive heart failure, severe to critical aortic stenosis, atrial fibrillation, hypertension, chronic kidney disease, and hypothyroidism who presented to the ED via EMS from [place] for evaluation of shortness of breath. Given her dementia, she is not able to give an accurate history and as such some of the following is obtained via a review of her electronic medical records as well as discussions with her who is at her bedside. She is known to the hospitalist service from a recent admission on 11/30/2021 at which time she was admitted for acute on chronic respiratory failure due to congestive heart failure and pneumonia. She was seen by Dr. Erickson (cardiology) in consultation at which time he made some adjustments in her medications however she was deemed not to be candidate for aortic valve replacement given her advanced age, dementia, and DNR status. She was diuresed and ultimately discharged back to the halfway on room air. The patient is visited by her daily and he has not noticed any particular change in health recently; he specifically did not notice any change in her breathing yesterday. This morning she apparently developed respiratory distress and on EMS arrival her SpO2 was 72% on 2 L nasal cannula and she was immediately started on CPAP with improvement. Chest x-ray on arrival showed patchy airspace opacities consistent with atelectasis and/or pneumonia and a small left pleural effusion. It is thought however that her chest x-ray likely reflects congestive heart failure and she is being admitted for diuresis. mentions that her her Lasix has been increased and decreased several times over the last couple of weeks, depending on her labs and oxygen requirements. At the time my evaluation the patient is resting comfortably on BiPAP and she reports feeling much better. She has no specific complaints and denies fever, chills, sweats, cold and flu symptoms, chest pain, pleuritic pain, palpitations, orthopnea, PND, nausea, and vomiting. She has chronic lower extremity edema which seems to be relatively unchanged. Review of Systems Review of Systems: Twelve systems were reviewed and are negative except as per HPI. [facility] Past Medical History Medical History (Updated 12/30/21 @ 15:12 by Hansa G. Gerling, PA-C) Aortic stenosis Severe aortic valve stenosis with a peak velocity of 461 cm/s, mean gradient of 50 mmHg, and aortic valve area of 0.7 cm2. Chronic anemia Chronic kidney disease, stage 3 Congestive heart failure Moderate concentric increased left ventricular wall thickness. Normal LV systolic function with an EF estimated at 60-65%. Left atrial chamber dimension is severely enlarged. There is severe aortic valve stenosis with a peak velocity of 461 cm/s, mean gradient of 50 mmHg, and aortic valve area of 0.7 cm2. Dementia Frequent falls Gastroesophageal reflux disease Grade II diastolic dysfunction Hyperlipidemia Hypertension Hypothyroidism Non-Hodgkin lymphoma (2009) Status post chemoradiation. Paroxysmal atrial fibrillation Pulmonary hypertension Severe on echocardiogram in December 2017 with a RVSP of 70 mmHg. Surgical History Surgical History (Updated 12/30/21 @ 14:43 by Hansa Johnston PA-C) History of appendectomy History of bilateral knee replacement History of hysterectomy History of right hip replacement Following right hip fracture. Family History Family History Mother Hypertension Father Acute myocardial infarction Other Diabetes mellitus Family history of arthritis Family history of cardiovascular disease Family history of malignant neoplasm Social History Social History (Updated 12/30/21 @ 14:36 by Hansa Johnston PA-C) Smoking packs per day: 0.25
--- NOTE | 2021-12-30 14:25 | ADMGEN ---
This patient, Cristal Laureano, was admitted to IMU Room 231-01 at 1410. Patient/family oriented to hospital policies and general routines including ID bracelet, bed and alarms, visiting hours, pain management, procedures, bathroom and other care routines, personal items, smoking policy, room service/diet, and visiting hours. Information on how to activate the Rapid Response Team has been discussed. Patient/Family are encouraged to report perceived risks to care and to ask questions if they do not understand what they are told or what they should do.
--- NOTE | 2021-12-30 15:15 | ADMGEN ---
This patient, Cristal Laureano, was admitted to IMU Room 231-01. Patient/family oriented to hospital policies and general routines including ID bracelet, bed and alarms, visiting hours, pain management, procedures, bathroom and other care routines, personal items, smoking policy, room service/diet, and visiting hours. Information on how to activate the Rapid Response Team has been discussed. Patient/Family are encouraged to report perceived risks to care and to ask questions if they do not understand what they are told or what they should do.
[2021-12-30] MEDS: APIXABAN 2.5 MG TABLET PO (20:11)
[2021-12-30] MEDS: busPIRone HCL 5 MG TABLET PO (20:11)
[2021-12-30] MEDS: FUROSEMIDE INJ 40 MG/4 ML VIAL 20 MG IV PUSH (20:11)
[2021-12-30] MEDS: busPIRone HCL 2.5 MG TABLET PO (20:11)
[2021-12-30] MEDS: MIRTAZAPINE 15 MG TABLET PO (20:11)
[2021-12-31] VITALS (17 sets, daily range): BP systolic 105–142; BP diastolic 55–83; PULSE 79–112; RESP 16–24; TEMP 36.2–37.3; O2SAT 94–100
[2021-12-31 05:35] LABS: Hemoglobin 8.1 g/dL (12.0-15.0); Mean Corpuscular HGB Conc 31.2 g/dl (32-36); Mean Corpuscular Hemoglobin 29.5 pg (26-34); Mean Corpuscular Volume 94.5 fl (80-100); Platelet Count Result 192 k/mm3 (150-375); Red Blood Count 2.75 M/mm3 (4.2-5.4); Red Cell Distribution Width 17.4 % (11.5-14.5); White Blood Count 4.7 K/mm3 (4.5-10.0)
[2021-12-31 05:44] LABS: Anion Gap 5 mmol/L (8-16); Blood Urea Nitrogen 21 mg/dL (7-17); Calcium 8.5 mg/dL (8.4-10.2); Carbon Dioxide 34 mmol/L (22-30); Chloride 99 mmol/L (98-107); Estimated CRCL calculation 35 ml/min; Estimated Glomerular Filt Rate 53; Glucose 84 mg/dL (65-110); Magnesium 1.9 mg/dL (1.6-2.3); Potassium 3.1 mmol/L (3.4-5.0); Sodium 138 mmol/L (137-145)
[2021-12-31 07:02] LABS: Free T4 Free Thyroxine Reflex 0.95 ng/dL (0.78-2.19)
[2021-12-31] MEDS: FERROUS SULFATE 324 MG TABLET PO ×2 (08:02→17:25)
[2021-12-31] MEDS: FUROSEMIDE INJ 40 MG/4 ML VIAL 20 MG IV PUSH ×2 (08:02→20:50)
[2021-12-31 08:03] LABS: Total Triiodothyronine (T3) 0.74 NG/ML (0.97-1.69)
[2021-12-31] MEDS: ESCITALOPRAM OXALATE 10 MG TABLET PO (08:03)
[2021-12-31] MEDS: CYANOCOBALAMIN 1,000 MCG TABLET 1000 MCG PO (08:03)
[2021-12-31] MEDS: busPIRone HCL 2.5 MG TABLET PO ×2 (08:03→20:50)
[2021-12-31] MEDS: ASPIRIN 81 MG ENTERIC TABLET PO (08:03)
[2021-12-31] MEDS: busPIRone HCL 5 MG TABLET PO ×2 (08:03→20:50)
[2021-12-31] MEDS: APIXABAN 2.5 MG TABLET PO ×2 (08:03→20:52)
[2021-12-31] MEDS: PANTOPRAZOLE 40 MG TABLET PO ×2 (08:04→18:26)
[2021-12-31] MEDS: allopurinoL 100 MG TABLET 200 MG PO (08:04)
[2021-12-31] MEDS: POTASSIUM CHLORIDE 20 MEQ PACKET (FOR LIQUID) 40 MEQ PO (11:53)
--- NOTE | 2021-12-31 14:31 | WPDCDIQUERY2 ---
CDI Query Clarification Request Chest X-Ray 12/30/21 09:20 IMPRESSION: 1. Patchy bilateral airspace opacities consistent with atelectasis and/or pneumonia. 2. Small left pleural effusion. 3. Cardiomegaly. -12/30 Hospitlist documented: -Assessment and plan -CHF exacerbation: -I50.9 - Heart failure, unspecified -Assessment and Plan: -She will be cautiously diuresed IV Lasix 20 mg BID with close monitoring of volume status, renal function, and vital signs. -Please clarify if diagnosis Congestive Heart Failure exacerbation is: -Systolic -Diastolic -Combined -Other -Unable to determine <Myrtle Raphael - Last Filed: 12/31/21 14:37> Provider Comments HFpEF - diastolic heart failure <Alissa Kaiser MD - Last Filed: 01/23/22 11:25>
[2021-12-31 15:56] LABS: Anion Gap 3 mmol/L (8-16); Blood Urea Nitrogen 21 mg/dL (7-17); Calcium 8.9 mg/dL (8.4-10.2); Carbon Dioxide 36 mmol/L (22-30); Chloride 98 mmol/L (98-107); Estimated CRCL calculation 35 ml/min; Estimated Glomerular Filt Rate 53; Glucose 86 mg/dL (65-110); Magnesium 1.9 mg/dL (1.6-2.3); Phosphorus 2.8 mg/dL (2.5-4.5); Potassium 3.4 mmol/L (3.4-5.0); Sodium 137 mmol/L (137-145)
--- NOTE | 2021-12-31 15:59 | PCOTNOTE ---
Hold therapy evaluation for today, as pt. awaiting hospice consult
[2021-12-31] MEDS: POTASSIUM CHLORIDE 20 MEQ TABLET 40 MEQ PO (17:24)
[2021-12-31] MEDS: SILVERGEL (ELTA) 45 ML 1 APPLIC TOPICAL (17:24)
[2021-12-31] MEDS: MIRTAZAPINE 15 MG TABLET PO (20:50)
--- NOTE | 2021-12-31 23:46 | PM.IMPN ---
Progress Note: A&P Assessment and Plan (1) Acute respiratory failure with hypoxia: Code(s): J96.01 - Acute respiratory failure with hypoxia Status: Acute Assessment and Plan: Likely due to a combination of volume overload and severe aortic stenosis. Had long discussion with daughter about code status and daughter elected to change status to DNR as this has been her code status in the past. She says she will discuss this with her father and clarify if necessary. Also discussed hospice criteria for dementia and how it may benefit the patient at this time of her life. Patient is in stage 6 maybe 7 of dementia and with the addition of the severe aortic stenosis, should be considered for hospice to help improve quality of life during this end of life care. Family has decided to proceed with evaluation for hospice at her current assited living facility. -Case management consulted for hospice referral -Wean oxygen as tolerated -Furosemide 20 mg IV BID (2) CHF exacerbation: Code(s): I50.9 - Heart failure, unspecified Status: Acute Assessment and Plan: Furosemide 20 mg IV BID (3) Aortic stenosis: Code(s): I35.0 - Nonrheumatic aortic (valve) stenosis Status: Acute Assessment and Plan: Critical by echo last fall. As per Dr. Erickson's note last month, she has been deemed not a candidate for replacement due to her dementia, advanced age, and DNR status. [facility] has decided to proceed with hospice evaluation. (4) Chronic kidney disease, stage 3: Code(s): N18.30 - Chronic kidney disease, stage 3 unspecified Status: Acute Assessment and Plan: Her renal function has ranged anywhere from 1.0 to 2.3. Stable. (5) Hypertension: Code(s): I10 - Essential (primary) hypertension Status: Acute Assessment and Plan: Blood pressures were reviewed and they are stable. (6) Paroxysmal atrial fibrillation: Code(s): I48.0 - Paroxysmal atrial fibrillation Status: Acute Assessment and Plan: Currently in a sinus rhythm. Continue apixaban for stroke prophylaxis. (7) Hypothyroidism: Code(s): E03.9 - Hypothyroidism, unspecified Status: Acute Assessment and Plan: TSH elevated. Free t4 normal. Continue levothyroxine. (8) Chronic anemia: Code(s): D64.9 - Anemia, unspecified Status: Acute Assessment and Plan: Normocytic. H&H has gradually fallen as her renal function has worsening. No need for transfusion at this time. Monitor. Subjective Date/time seen: Date of Service 12/31/21 1245 Patient is confused becoming angry about any attempt at a physical exam. Per nursing patient refused potassium replacement. Later in afternoon daughter arrived and was called by nursing to speak with the daughter. Daughter says patient has always been DNR and that prior to this hospitalization this had been agreed upon by her, her father and brother. Daughter says she has noted mom starting to pocket her food and just not eat food prior to hospitalization. Also says this is the most confused and aggressive she has ever seen her mother. Says mother has been hospitalized several times in the last month and that at a prior hospitalization hospital staff suggested hospice for her mother. Review of Systems Review of Systems: ROS unobtainable: Yes unobtainable due to mental status Exam Narrative: General:sitting in bed HEENT: normocephalic, atraumatic, anicteric Neck: Supple Resp: Nonlabored respirations, wearing oxygen Psych: labile mood Neuro: No focal deficits Objective Data Vital Signs Vital Signs: Vital Signs - 24 hr 12/31/21 00:00 12/31/21 01:13 12/31/21 02:00 Temperature Pulse Rate 94 86 Respiratory Rate 16 Blood Pressure Pulse Oximetry 100 96 12/31/21 04:00 12/31/21 05:43 12/31/21 08:00 Temperature 98.1 F 97.7 F Pulse Rate 97 95 105 H Respi
[2022-01-01] VITALS (11 sets, daily range): BP systolic 98–150; BP diastolic 57–70; PULSE 63–119; RESP 16–24; TEMP 36.4–36.6; O2SAT 95–99
[2022-01-01 05:26] LABS: Anion Gap 4 mmol/L (8-16); Blood Urea Nitrogen 20 mg/dL (7-17); Calcium 8.7 mg/dL (8.4-10.2); Carbon Dioxide 35 mmol/L (22-30); Chloride 99 mmol/L (98-107); Estimated CRCL calculation 32 ml/min; Estimated Glomerular Filt Rate 47; Glucose 85 mg/dL (65-110); Potassium 3.6 mmol/L (3.4-5.0); Sodium 138 mmol/L (137-145)
[2022-01-01] MEDS: LEVOTHYROXINE SODIUM 75 MCG TABLET PO (06:00)
[2022-01-01] MEDS: busPIRone HCL 2.5 MG TABLET PO (08:46)
[2022-01-01] MEDS: CYANOCOBALAMIN 1,000 MCG TABLET 1000 MCG PO (08:46)
[2022-01-01] MEDS: SILVERGEL (ELTA) 45 ML 1 APPLIC TOPICAL (08:46)
[2022-01-01] MEDS: ASPIRIN 81 MG ENTERIC TABLET PO (08:46)
[2022-01-01] MEDS: busPIRone HCL 5 MG TABLET PO (08:46)
[2022-01-01] MEDS: APIXABAN 2.5 MG TABLET PO (08:47)
[2022-01-01] MEDS: allopurinoL 100 MG TABLET 200 MG PO (08:47)
[2022-01-01] MEDS: ESCITALOPRAM OXALATE 10 MG TABLET PO (08:48)
[2022-01-01] MEDS: FERROUS SULFATE 324 MG TABLET PO ×2 (08:48→16:11)
[2022-01-01] MEDS: PANTOPRAZOLE 40 MG TABLET PO ×2 (08:48→16:11)
[2022-01-01] MEDS: FUROSEMIDE INJ 40 MG/4 ML VIAL 20 MG IV PUSH (08:48)
--- NOTE | 2022-01-01 11:02 | PCOTNOTE ---
Canceling OT evaluation orders. Per nursing and care coordination, Pt. is going on hospice upon return to care facility, no therapy services needed at this time.
--- NOTE | 2022-01-01 12:15 | PCPTNOTE ---
Canceling PT evaluation orders. Per nursing and care coordination, Pt. is going on hospice upon return to care facility, no therapy services needed at this time.
--- NOTE | 2022-01-01 16:38 | PM.DS ---
DS: Admitting Diagnosis Discharge Date 01/01/2022 Admitting Diagnosis Hypoxia due to volume overload DS: Discharge Diagnosis Discharge Diagnosis (1) Acute respiratory failure with hypoxia: Code(s): J96.01 - Acute respiratory failure with hypoxia Status: Acute Assessment and Plan: Likely due to a combination of volume overload and severe aortic stenosis. Had long discussion with daughter about code status and daughter elected to change status to DNR as this has been her code status in the past. She says she will discuss this with her father and clarify if necessary. Also discussed hospice criteria for dementia and how it may benefit the patient at this time of her life. Patient is in stage 6 maybe 7 of dementia and with the addition of the severe aortic stenosis, should be considered for hospice to help improve quality of life during this end of life care. Family has decided to proceed with evaluation for hospice at her current assisted living facility. Per patient uses oxygen at the facility (2LNC) intermittently and this morning patient was on 2LNC. Net negative 1.4L for this hospitalization. Patient overall improved this morning with at bedside much more cooperative. -Discharge to [place] for hospice care -Wean oxygen as tolerated (2) CHF exacerbation: Code(s): I50.9 - Heart failure, unspecified Status: Acute Assessment and Plan: Will resume home furosemide fo 20 mg BID. (3) Aortic stenosis: Code(s): I35.0 - Nonrheumatic aortic (valve) stenosis Status: Acute Assessment and Plan: Critical by echo last fall. As per Dr. Erickson's note last month, she has been deemed not a candidate for replacement due to her dementia, advanced age, and DNR status. [facility] has decided to proceed with hospice care at [place]. (4) Chronic kidney disease, stage 3: Code(s): N18.30 - Chronic kidney disease, stage 3 unspecified Status: Acute Assessment and Plan: Her renal function has ranged anywhere from 1.0 to 2.3. Stable. (5) Hypertension: Code(s): I10 - Essential (primary) hypertension Status: Acute Assessment and Plan: Blood pressures were reviewed and they are stable. (6) Paroxysmal atrial fibrillation: Code(s): I48.0 - Paroxysmal atrial fibrillation Status: Acute Assessment and Plan: Currently in a sinus rhythm. Continue apixaban for stroke prophylaxis. (7) Hypothyroidism: Code(s): E03.9 - Hypothyroidism, unspecified Status: Acute Assessment and Plan: TSH elevated. Free t4 normal. Will defer adjusting levothyroxine dose due to age and hospice care decision. Continue levothyroxine. (8) Chronic anemia: Code(s): D64.9 - Anemia, unspecified Status: Acute Assessment and Plan: Stable. DS: Summary Hospital Course Hospital Course: Patient presented ot the ED with reported hypoxia to 74% on 2LNC, which she wears intermittently at her [facility]. Patient required BIPAP. BNP was elevated to 5150. Due to patient having critical and not being a candidate for valve replacement due to her dementia and DNR status, diuresis was with furosemide 20 mg IV BID. Discussion had with family about goals of care, patient waxing and waning mental status and what would be best for the patient. Family decided to have patient discharged back to [place] and have hospice. Time Spent with Patient Time attestation: Total time spent providing and/or coordinating discharge services: greater than 30 minutes Exam Narrative: GENERAL: NAD, cooperative with sitting at bedside HEENT: Normocephalic, atraumatic, anicteric NECK: Supple CV: 3/6 NATHANIEL RESP: CTAB on 2LNC Abdomen: Soft, non-tender, non-distended EXTREMITIES: Warm and well perfused, no clubbing SKIN: warm, dry and intact. NEURO:Alert and appropriate today
[2022-01-01 16:40] LABS: EDCOVIDSCREEN Negative (Negative)
--- NOTE | 2022-01-01 18:10 | PC.NURSE ---
1752-called report to SNEHAL Mcqueen from [facility]. Attempted to call [facility], but left a message.
== END 2022-01-01 19:50 | disposition hospice, home (50) | DRG 291 ==
LOC: ANHED 11:23 → ANHIMU 14:27
PROVIDERS: Physician Assistant; Admitting Provider Internal Medicine; Emergency Provider Emergency Medicine; PCP Family Medicine; Visit Provider Family Medicine
DX: I13.0 Hypertensive heart and chronic kidney disease with heart failure and stage 1 through stage 4 chronic kidney disease, or unspecified chronic kidney disease (principal); J96.01 Acute respiratory failure with hypoxia; I50.33 Acute on chronic diastolic (congestive) heart failure; L97.819 Non-pressure chronic ulcer of other part of right lower leg with unspecified severity; I35.0 Nonrheumatic aortic (valve) stenosis; N18.30 Chronic kidney disease, stage 3 unspecified; I48.0 Paroxysmal atrial fibrillation; E03.9 Hypothyroidism, unspecified; D64.9 Anemia, unspecified; K21.9 Gastro-esophageal reflux disease without esophagitis; E78.5 Hyperlipidemia, unspecified; I87.2 Venous insufficiency (chronic) (peripheral); Z96.653 Presence of artificial knee joint, bilateral; Z96.641 Presence of right artificial hip joint; Z85.72 Personal history of non-Hodgkin lymphomas; Z90.710 Acquired absence of both cervix and uterus; Z90.49 Acquired absence of other specified parts of digestive tract; Z87.891 Personal history of nicotine dependence
CPT/HCPCS: 36415; 36600; 71045; 80048; 80053; 81001; 82805; 83735; 83880; 84100; 84439; 84443; 84480; 85025; 85027; 87040; 87426; 87502; 93005; 94002; 96365; 96375; 99285; A9270; C9803; J0456; J0696; J1940; U0003; U0005